=== PATIENT | male | born 1955 | race Caucasian/White ===

== ENCOUNTER 2017-06-06 09:19 | Observation (INO) | payer OTHER ==
[2017-06-06 09:51] LABS: #Eosinphils 0.3 thou/uL (0.0-0.7); #Lymphocytes 1.4 thou/uL (1.20-3.40); #Monocytes 0.5 thou/uL (0.11-0.59); #Neutrophils 7.8 thou/uL (1.40-6.50); %Basophils 0.1 % (0.0-1.0); %Eosinophils 2.9 % (0.0-10.0); %Lymphocytes 14.1 % (21.0-51.0); Hematocrit 47.3 % (42.0-52.0); Mean Platelet Volume 7.5 fL (7.4-10.4)
[2017-06-06 09:59] LABS: PTT 28.5 SEC (22.9-36.1); Prothrombin Time 13.1 SEC (12.0-14.7)
[2017-06-06 10:21] LABS: ALT (SGPT) 29 U/L (8-55); AST (SGOT) 22 U/L (5-34); Alkaline Phosphatase 60 U/L (40-150); Anion Gap 11 mmol/L (10-20); BUN (Urea Nitrogen) 20 mg/dL (8.4-25.7); Bilirubin, Total 1.3 mg/dL (0.2-1.2); CK (CPK) 224 U/L (30-200); Calc. Creatinine Clearance 0 mL/min (70-130); Calcium 9.6 mg/dL (7.8-10.44); Carbon Dioxide 25 mmol/L (22-29); Chloride 106 mmol/L (98-107); Estimated GFR-MDRD 84; Globulin 3.1 g/dL (2.4-3.5); Lipase 17 U/L (8-78); Protein, Total 7.4 g/dL (6.0-8.3)
[2017-06-06 10:23] LABS: Troponin I Less than 0.010 ng/mL (< 0.028)
--- NOTE | 2017-06-06 10:36 | RAD ---
AP VIEW CHEST: HISTORY: Dyspnea. FINDINGS: AP view chest is obtained. The lungs are well aerated. No evidence of active intrathoracic disease is seen. No evidence of effusions, pneumonia, or pneumothorax seen. IMPRESSION: Unremarkable AP view chest. POS: [facility]
[2017-06-06] MEDS ORDERED: Lorazepam 2 MG/ML VIAL ONE (10:38)
[2017-06-06] MEDS ORDERED: Meclizine HCl 25 MG TAB ONE (10:39)
[2017-06-06] MEDS ORDERED: Dexamethasone 4 mg/ml Vial ONE (10:39)
[2017-06-06] MEDS ORDERED: Ondansetron HCl/PF 4 MG/2 ML Vial ONE (10:39)
--- NOTE | 2017-06-06 11:08 | CT ---
CT OF THE BRAIN WITHOUT CONTRAST: INDICATION: History of dizziness and vertigo. COMPARISON: None. FINDINGS: No acute infarct, hemorrhage, or hydrocephalus is present. Septum pellucidum and third ventricle are midline. The skull and extracranial soft tissues are unremarkable appearing. IMPRESSION: No acute intracranial abnormality. POS: [facility]
[2017-06-06 11:52] LABS: Bilirubin Negative (Negative); Blood, Urine Negative (Negative); Glucose, Urine (Dipstick) Negative (Negative); Ketone, Urine Negative (Negative); Nitrite Negative (Negative); Protein, Urine (Dipstick) Negative (Neg-Trace); Urobilinogen 0.2 mg/dL (0.2-1.0)
[2017-06-06] MEDS ORDERED: Mag-Al 1200 mg/1200 mg/30 ML UDCUP PO PRN (12:56)
[2017-06-06] MEDS ORDERED: Loperamide HCl 2 MG CAP PO PRN (12:56)
[2017-06-06] MEDS ORDERED: Zolpidem Tartrate 5 MG TAB PO PRN (12:56)
[2017-06-06] MEDS ORDERED: Sodium Chloride 0.65% Nasal 44 ML BOT EA NARE PRN (12:56)
[2017-06-06] MEDS ORDERED: Ondansetron ODT 4 MG TAB PO PRN (12:56)
[2017-06-06] MEDS ORDERED: Chloraseptic Spray 180 ml Bottle PO PRN (12:56)
[2017-06-06] MEDS ORDERED: Eucerin (Mineral Oil/Petrolatum,White) 30 gm Jar TOP PRN (12:56)
[2017-06-06] MEDS ORDERED: Artificial Tears 18 DROP/0.9 ML EA EYE PRN (12:56)
[2017-06-06] MEDS ORDERED: Loratadine 10 MG TAB PO PRN (12:56)
[2017-06-06] MEDS ORDERED: HYDROcodone/Acetaminophen 5/325 mg Tablet PO PRN (12:56)
[2017-06-06] MEDS ORDERED: Senokot 8.6 MG TAB PO PRN (12:56)
[2017-06-06] MEDS ORDERED: Ondansetron HCl/PF 4 MG/2 ML Vial IVP PRN (12:56)
[2017-06-06] MEDS ORDERED: Diabetic Tussin 200 MG/10 ML UDCUP PO PRN (12:56)
[2017-06-06] MEDS ORDERED: Milk Of Magnesia 30 ML UDCUP PO PRN (12:56)
[2017-06-06] MEDS ORDERED: hydrALAZINE 20 MG/ML VIAL SLOW IVP PRN (12:56)
[2017-06-06] MEDS ORDERED: Acetaminophen 325 MG TAB PO PRN (12:56)
[2017-06-06] MEDS ORDERED: ISOVUE-370 76%-LOCM 1 ML ONE (13:57)
--- NOTE | 2017-06-06 14:41 | HP ---
PRIMARY CARE PHYSICIAN: [facility] call admission. REASON FOR ADMISSION: Acute vertigo, rule out cerebrovascular accident. HISTORY OF PRESENT ILLNESS: This is a 61-year-old male with a new diagnosis of hypertension, but not on any blood pressure medication as well as history of dyslipidemia and not on any statin therapy as well as morbid obesity, who was brought to emergency room for acute vertigo. The patient reports th at he woke up this morning around 5:00 a.m. and he was feeling that his ceiling fan and everything wa s spinning and then he sat down at the edge of the bed, but he was continuing to feel spinning sensat ion and he tried to go to bathroom, and when he was in the bathroom at that time he was feeling nause a, but his spinning sensation was persistent. Then, he came back again to the bed and he was not com fortable, because he was having continuous spinning sensation. Whenever he was closing his eyes, the n he was feeling better, but whenever he was opening his eyes, he was starting feeling dizziness and vertigo. Even if he changes position, there was also precipitating vertigo. When he was in bed, at that time he was feeling hot flashes over his both legs and upper extremity. Subsequently, he tried to go to shower, but he was not able to do that. He was not having any tinnitus. He was not having any upper respiratory infection or any upper respiratory symptoms. He started feeling throbbing head ache on the posterior aspect of head. Then he started watching TV, but he was feeling spinning sensa tion and his TV was also spinning around that made symptoms worse. Patient also started experiencing left-sided upper and lower extremity as well as left-sided facial numbness as a dentist gives local anesthetic. The patient was worried about that something is wrong. He waited for a while to get bet ter by itself, but it was not getting better and that is why he woke up his , and subsequently, h is drove him to ER. When they were on the way to [place], patient felt vomiting, and he was having similar vertigo and nausea as well as tingling and numbness sensation on the left side and he was hav ing headache. He did not have any fall. He did not have any chest pain, but he was feeling shortnes s of breath. Finally, drove him to ER and he was still having ongoing symptoms. In the emergency room, the patient had CT brain, which was normal; and chest x-ray was normal. He wa s given aspirin 324 mg, Decadron 10 mg, Ativan 1 mg, Zofran 4 mg, and Antivert 25 mg. After that his symptoms were somewhat improved, but he was still feeling the spinning sensation as well as he was s till having mild paraesthesia on the left side, but it started improving when I saw this patient. The patient does have a recent diagnosis of high blood pressure, but he was not started on any medica tion and he does have cholesterol problem, but he is not on any specific therapy. He does not have a ny sedentary lifestyle. He denies any speech problem. He denies any diplopia. He denies any facial asymmetry. He denies any constipation, diarrhea, melena, hematochezia. He denies any similar probl em in the past. He denies any difficulty swallowing. REVIEW OF SYSTEMS: The following complete review of systems was negative, unless otherwise mentioned in the HPI or below: Constitutional: Weight loss or gain, ability to conduct usual activities. Sk in: Rash, itching. Eyes: Double vision, pain. ENT/Mouth: Nose bleeding, neck stiffness, pain, te nderness. Cardiovascular: Palpitations, dyspnea on exertion, orthopnea. Respiratory: Shortness of breath, wheezing, cough, hemoptysis, fever or night sweats. Gastrointestinal: Poor appetite, abdom inal pain, heartburn, nausea, vomiting, constipation, or diarrhea. Genitourinary: Urgency, frequenc y, dysuria, nocturia. Musculoskeletal: Pain, swelling. Neurologic/Psychiatric: Anxiety, depression . Allergy/Immunologic: Skin rash, bleeding tendency. Please see my HPI for pertinent positives and negatives. All other review of systems reviewed and negative except as mentioned in the HPI. ALLERGIES: No known drug allergy. CURRENT HOME MEDICATIONS: The patient is not taking any prescribed or non-prescribed medication. PAST MEDICAL HISTORY: Osteoarthritis, morbid obesity, recent diagnosis of hypertension, dyslipidemia . PAST SURGICAL HISTORY: ACL repair in bilateral knee. PAST PSYCHIATRIC HISTORY: Reviewed and negative. FAMILY HISTORY: No strong family history of premature coronary artery disease, stroke, or cancer. SOCIAL HISTORY: Patient is and lives at home. 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 He denies any tobacco, alcohol, or illicit drug abuse. EMERGENCY ROOM COURSE: Patient is given aspirin 324 mg, Decadron 10 mg, Ativan 1 mg, Zofran 4 mg, an d Antivert 25 mg. PHYSICAL EXAMINATION: VITAL SIGNS: On arrival, blood pressure 146/82, pulse 67, respiratory rate 16, temperature 97.5, sat uration 97% on room air, weight 145.1 kilograms. GENERAL: Patient is currently alert, awake, in no obvious acute distress. HEENT: Normocephalic, atraumatic. Eyes: Pupils round and reactive to light. Extraocular muscles i ntact. ENT: Oropharynx within normal limits. Moist mucous membranes. No oral lesions. No pharyng eal erythema, no exudate. NECK: Supple, no JVD, no thyromegaly, no carotid bruits. LUNGS: Clear to auscultation without any rhonchi or rales. CARDIAC: S1, S2 regular without any murmur. ABDOMEN: Soft, obesity present. Bowel sounds present. Nontender, nondistended. No organomegaly, n o mass, no suprapubic tenderness. BACK EXAMINATION: Unremarkable, no CVA tenderness. EXTREMITIES: Upper extremities, passive movement of all joints are normal. Lower extremities, no ed sonny. Good peripheral pulsation. SKIN: No skin rash. HEMATOLOGICAL SYSTEM: No lymphadenopathy. NEUROLOGIC: The patient is alert, oriented x3. Patient does have difficulty performing cerebellar s ign on the left side. The patient does have left-sided facial and upper and lower extremity numbness . Speech normal. Motor 5/5. Reflexes symmetrical. Plantar bilateral flexor. PSYCHIATRIC: Normal affect. SIGNIFICANT LABORATORY DATA: EKG, based on my review, normal sinus rhythm, left axis deviation, LVH. CT brain, based on my review, no acute intracranial process. Chest x-ray, based on my review, no a cute cardiopulmonary process. CBC: WBC 10.0, hemoglobin 15.9, platelets 218. INR 1.0. BMP: Sodiu m 138, potassium 3.9, chloride 106, carbon dioxide 25, BUN 20, creatinine 0.92, glucose 118, calcium 9.6. LFT: Bilirubin 1.3, AST 22, ALT 29, alkaline phosphatase 60, albumin 4.3, lipase 17, CK of 224 , CK-MB 5.2, troponin I less than 0.010. BNP 19.7. ASSESSMENT AND PLAN: 1. Acute cerebellar stroke, left-sided, suspected. This patient has acute vertigo. He has occipita l throbbing headache and left upper and lower extremity paraesthesia as well as facial paraesthesia o n the left side with a history of hypertension, dyslipidemia, morbid obesity, and his age. I am real ly concerned about left-sided cerebellar cerebrovascular accident. CT brain is not showing any acute process. Currently, symptoms are still there and patient is out of window period for any kind of in tervention. The patient will be given aspirin. We will obtain CT angiography of neck and brain to r ule out any vertebrobasilar insufficiency versus anterior circulation problem. We will obtain MRI br ain and echocardiography. We will check lipid profile as a part of stroke workup. We will do neuro check q.4 hourly. If stroke is positive on MRI, then will consult Neurology and change to inpatient status, but at this point we will start with observation status. We will start a blood pressure medi cation with amlodipine 2.5 mg p.o. daily and Lipitor 10 mg p.o. at bedtime. 2. Hypertension. We are starting amlodipine 5 mg p.o. daily and we will monitor the patient's blood pressure. 3. Dyslipidemia. Check lipid profile and start Lipitor 10 mg p.o. at bedtime. 4. Morbid obesity. Dietary education given, weight loss education given, healthy lifestyle measures discussed with the patient. 5. Osteoarthritis. The patient will be given pain medication as needed basis. 6. Deep vein thrombosis prophylaxis. Lovenox 40 mg subcutaneously daily. 7. Gastrointestinal prophylaxis. Pepcid 20 mg p.o. b.i.d. 8. Code status: The patient is FULL CODE. The patient's is surrogate decision maker. Disposition plan based on clinical course. At this point, we will also treat symptomatically for emilio tigo with meclizine. We will also consult PT/OT for gait assessment. Another differential diagnosis is benign positional vertigo with acute labyrinthitis, but less likely given associated neurological symptoms and absence of upper respiratory viral infection.
--- NOTE | 2017-06-06 15:21 | CT ---
CAROTID CTA: HISTORY: Cerebellar CVA. FINDINGS: Contrast-enhanced CTA of the carotid arteries is obtained. Two-D and 3D reconstructed images perform ed on an independent 3D work station. Aortic arch is unremarkable. The right brachiocephalic artery is patent. The right and left subclav archie arteries are patent. The right and left vertebral arteries are patent without evidence of signif icant stenosis. Vertebrobasilar artery unremarkable. The right brachiocephalic artery is patent. The right and left common and internal carotid arteries are patent without evidence of significant st enosis. Right and left external carotid arteries are also patent. There is some heterogeneity seen in the right and left thyroid lobes with area of calcification in th e left thyroid lobe. Correlate with thyroid sonography. IMPRESSION: 1. No significant evidence of common carotid, internal carotid, external carotid, or vertebral arter y stenosis or occlusive change is seen. 2. Heterogeneous thyroid lobes. Elective evaluation by ENT may be of use. POS: [facility]
--- NOTE | 2017-06-06 15:52 | MRI ---
MRI BRAIN WITHOUT CONTRAST: Date: 06/06/17 HISTORY: Altered mental status, dizziness, vertigo, TIA. FINDINGS: Correlation is made with CT scan from earlier today. No restricted diffusion is seen. No evidence of infarct, hemorrhage, midline shift, or abnormal extra -axial fluid collections are seen. The ventricular size is normal and the basilar cisterns are patent . The visualized paranasal sinuses and mastoid air cells are well aerated. IMPRESSION: No evidence of acute intracranial process. POS: [facility]
[2017-06-06 17:44] VITALS: BMI 34.5
[2017-06-06] MEDS: Famotidine 20 MG TAB PO SCH (20:45)
[2017-06-06] MEDS ORDERED: Atorvastatin Calcium 10 MG TAB PO SCH (21:00)
--- NOTE | 2017-06-07 05:43 | CON ---
DATE OF CONSULTATION: 06/06/2017 REFERRING PROVIDER: Arleen Brandon M.D. REASON FOR CONSULTATION: Acute onset of vertigo. HISTORY OF PRESENT ILLNESS: Mr. Lion is a pleasant 61-year-old male, who has been concerned for evaluation of acute onset of vertigo. He reports that this morning around 5:00 a.m. when he wok e up and opened his eyes, he noticed everything was spinning. He tried to sit up and report his feet down on the floor and noticed that he was not able to maintain his balance. He also continued to blanton ve dizziness and vertigo-type sensation. He went to the bathroom and stood on the washbasin for a fe w minutes with his eyes closed as it did help some, but as soon as he opened his eyes, he again start ed noticing vertigo-type sensation. He also started feeling sweaty and becoming hot. He then went b ack to the bed and at that time, he continued to have the dizziness and vertigo-type sensation. He w as also having issues with depth perception. He also complained of having headache into the back of the head, which was throbbing in quality. He also felt double vision when he was trying to look at o bjects. This prompted him to tell his to bring him to the hospital. His noted that while he was trying to put on his jeans, he could not do it as his depth perception was off. She noted jovanna t his left side was not able to coordinate properly. He also complaint of being very light sensitive , although, she felt that it was more of covering of his eyes to avoid the vertigo-type sensation. Eugenio lucas has no prior history of this type of symptoms in the past. He denies having ringing in the ear, he aring loss or earache. He did not have any dysarthria or dysphagia. There was no numbness, tingling , or weakness in his upper and lower extremities. He reports that this has improved somewhat since b eing admitted to the hospital; however, when he tries to look from one side to the other, he does get extremely dizzy and vertigo as well as nauseous. He also has double vision at that time that tends to go away after a few seconds. PAST MEDICAL HISTORY: Significant for osteoarthritis, morbid obesity, probable history of hypertensi on per , and dyslipidemia. PAST SURGICAL HISTORY: Significant for ACL repair in both knees. SOCIAL HISTORY: He is and lives with his at home. He denies smoking, alcohol use, or i llicit drug use. 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 CURRENT MEDICATIONS: Please review MAR. ALLERGIES: No known drug allergies. REVIEW OF SYSTEMS: As mentioned in the HPI, otherwise negative. PHYSICAL EXAMINATION: VITAL SIGNS: Blood pressure 146/91, pulse of 87, temperature of 98.5, respirations of 20, O2 sats of 97% on room air. GENERAL: Well-developed, well-nourished male, in no apparent distress. RESPIRATORY: Clear to auscultation bilaterally. CARDIOVASCULAR: Regular rate and rhythm. NEUROLOGIC: Mental status: The patient is awake, alert, oriented x3. Speech and language: Fluent speech. Cranial nerves: Pupils are 3 mm and reactive. Visual denney are intact. External muscles are intact. No nystagmus is noted. Face is symmetric. Tongue and uvula are midline. Motor exam sh owed normal tone and bulk with a 5/5 strength in both lower extremities. Sensory: Sensation is inta ct and symmetric. Deep tendon reflexes 2+ reflexes in both lower extremities. Babinski: Plantar re sponses flexion bilaterally. Coordination: There is a mild dysmetria noted on [id number] on the left upper extremity. There is also dysdiadochokinesia noted on the left lower extremity on benigno l-to-garvin test. LABORATORY DATA: Labs are reviewed, which included CBC, coag panel, CMP, CPK, CK-MB, troponin, BNP, TSH, and urinalysis, which are all significant for CPK of 224. Otherwise, unremarkable. IMAGING STUDIES: MRI brain without contrast was reviewed, which showed no acute intracranial abnorma lity. CT angiogram of the neck was reviewed, which showed no significant or evidence of carotid rena jerica or vertebral artery stenosis noted. Heterogeneous thyroid lobes with the area of classification in the left thyroid lobe, otherwise negative. IMPRESSION: 1. Acute vertigo. 2. Dysmetria. Mr. Lion is a pleasant 61-year-old male, who presented with an acute onset of vertigo and po or depth perception. His symptoms are somewhat getting better. I have reviewed his MRI brain, which showed no acute intracranial abnormality. I reviewed his CT angiogram of the neck, which showed no acute intracranial vascular abnormality. At this time, I would recommend starting patient on aspirin 81 mg daily for secondary stroke prevention. I will recommend consulting PT, OT. If the patient is stable overnight and he has improvement in his symptoms, he is okay to be discharged to home on leonie rr morning.
[2017-06-07 07:51] VITALS: TEMP 97.5
[2017-06-07] MEDS: Famotidine 20 MG TAB PO SCH (08:43)
[2017-06-07] MEDS ORDERED: Enoxaparin Sodium 40 MG/0.4 ML SYRINGE SC SCH (09:00)
[2017-06-07] MEDS ORDERED: Amlodipine 5 MG TAB PO SCH (09:00)
[2017-06-07] MEDS ORDERED: Aspirin 325 mg Enteric Coated Tablet PO SCH (09:00)
[2017-06-07] MEDS ORDERED: FLU VACC QS2017-18 36 mo. & older 0.5 ML SYRINGE IM ONE (09:00)
--- NOTE | 2017-06-07 11:00 | DIS ---
DATE OF ADMISSION: 06/06/2017 DATE OF DISCHARGE: 06/07/2017 PRIMARY CARE PHYSICIAN: Rolanda Koch, family nurse practitioner. DISCHARGE DISPOSITION: Home. PRIMARY DISCHARGE DIAGNOSES: 1. Acute dysmetria and vertigo suspected for cerebellar transient ischemic attack. 2. New onset hypertension. 3. New onset dyslipidemia. SECONDARY DISCHARGE DIAGNOSES: Obesity with BMI 34. PRIMARY PROCEDURE/OPERATION: None. RADIOLOGICAL INVESTIGATION: Chest x-ray, normal. CT brain, normal. Echocardiography showed diastol ic dysfunction. MRI brain, normal. CT angiography, normal. SIGNIFICANT LABORATORY DATA: WBC 10.0, hemoglobin 15.9, platelets 218. INR 1.0. Sodium 138, potass ium 3.9, BUN 20, creatinine 0.92, calcium 9.6. LFTs normal. Cardiac enzymes negative. LDL 224, TSH 0.39, lipase 17, homocystine 6.49. Urinalysis normal. DISCHARGE MEDICATIONS: Aspirin 325 mg p.o. daily, amlodipine 5 mg p.o. daily, and Lipitor 40 mg p.o. at bedtime. CONTRAINDICATIONS: None. CODE STATUS: FULL CODE. INPATIENT CONSULTANTS: Dr. Estefania Campoverde was consulted while in hospital. TEST RESULTS PENDING ON DISCHARGE: None. ALLERGIES: No known drug allergies. DISCHARGE PLAN: Post hospital, the patient will follow up with primary care physician in 1 week. HOSPITAL COURSE: A 61-year-old male with above-mentioned medical problem, who was admitted by me yes terday. Please see my HPI for further details. The patient was having acute onset of vertigo, dysme tria, unsteadiness, and he was also experiencing numbness on his left side of his upper extremity and lower extremity. He was not having any vestibular symptoms and he was not having benign positional vertigo symptoms. Initially CT brain was normal. Chest x-ray was normal. He was treated with Antiv ert, Decadron, and lorazepam in the emergency room without any significant improvement. We suspected a cerebellar CVA. We kept this patient in the hospital in stroke floor. We did neuro check. We co nsulted Neurology. We did an MRI brain; surprisingly MRI was normal. CT angiography was normal. His lipid profile is n ot at target and that is why we provided dietary education. He has new onset hypertension and high c holesterol and that is why we started medication. Necessary patient education about heart healthy li mishale discussed with the patient. He is advised to follow with primary care physician in 1 week fo r adjustment of blood pressure medication. Today, the patient is seen and examined at bedside. Plan of care discussed with the patient and fami ly member. PHYSICAL EXAMINATION: VITAL SIGNS: Temperature 97.5, pulse 65, blood pressure 151/86, respiratory rate 18, saturation 95%, weight 317 pounds. GENERAL: The patient is currently alert, awake, in no acute distress. HEAD: Normocephalic, atraumatic. LUNGS: Clear to auscultation without any rhonchi. CARDIAC: S1, S2 regular without any murmur. ABDOMEN: Soft and benign. EXTREMITIES: No edema. NEUROLOGIC: Nonfocal examination. Review of systems reviewed and negative. All new medication prescription sent to his pharmacy. Rupa ent is medically stable for discharge today.
[2017-06-07 15:33] VITALS: BP 145/106
== END 2017-06-07 11:08 | disposition home or self-care (01) ==
LOC: ERS 09:19 → ERHOLD 11:46 → 2SE 16:26
PROVIDERS: ADMIT Internal Medicine; ATTEND Internal Medicine
DX: R27.8 Other lack of coordination (principal); I10 Essential (primary) hypertension; E78.5 Hyperlipidemia, unspecified; R20.0 Anesthesia of skin; M19.90 Unspecified osteoarthritis, unspecified site; E66.01 Morbid (severe) obesity due to excess calories; Z68.34 Body mass index [BMI] 34.0-34.9, adult; Z79.82 Long term (current) use of aspirin; Z79.899 Other long term (current) drug therapy; Z98.890 Other specified postprocedural states
CPT/HCPCS: 36415; 70450; 70498; 70551; 71010; 80053; 80061; 81003; 82553; 83090; 83690; 83880; 84443; 84484; 85025; 85610; 85730; 90471; 90682; 93005; 93306; 96372; 96374; 96375; G0008; G0378; G8978-GP-CH; G8979-GP-CH; G8980-GP-CH; G8987-GO-CH; G8988-GO-CH; G8989-GO-CH; J1100; J1650; J2060; J2405; Q2036

== ENCOUNTER 2018-04-26 14:59 | Outpatient (CLI) | payer OTHER ==
--- NOTE | 2018-04-26 17:13 | RAD ---
PA AND LATERAL OF THE CHEST 04/26/18 INDICATION: Concern for TB. FINDINGS: No suspicious nodules or hilar lymphadenopathy is evident. No pleural effusion is demonstrated. Cardi omediastinal silhouette is within normal limits. No acute osseous abnormality is evident. IMPRESSION: No acute abnormality. POS: [facility]
== END 2018-04-26 15:00 | disposition home or self-care (01) ==
LOC: RAD-FRANK 14:59
PROVIDERS: ATTEND Nurse Practitioner Family
DX: Z03.89 Encounter for observation for other suspected diseases and conditions ruled out (principal)
CPT/HCPCS: 71046; 86706; 86780; 86803; 87389

== ENCOUNTER 2018-04-30 12:51 | Inpatient (IN) | payer OTHER ==
[2018-04-30] MEDS ORDERED: Fentanyl 100 MCG/2 ML VIAL ONE ×8 (12:58→20:28)
[2018-04-30] MEDS ORDERED: Adacel (T-DAP) 0.5 ML VIAL ONE (13:00)
[2018-04-30 13:21] LABS: #Eosinphils 0.2 thou/uL (0.0-0.7); #Lymphocytes 2.8 thou/uL (1.20-3.40); #Monocytes 0.9 thou/uL (0.11-0.59); #Neutrophils 6.9 thou/uL (1.40-6.50); %Basophils 0.1 % (0.0-1.0); %Eosinophils 1.9 % (0.0-10.0); %Lymphocytes 26.1 % (21.0-51.0); %Monocytes 8.3 % (0.0-10.0); %Neutrophils 63.7 % (42.0-75.0); Hemoglobin 15.2 g/dL (14.0-18.0); Mean Corpuscular HGB CONC 33.8 g/dL (32.0-36.0); Mean Corpuscular Hemoglobin 30.7 pg (27.0-31.0); Mean Corpuscular Volume 90.8 fL (78.0-98.0); Mean Platelet Volume 7.7 fL (7.4-10.4); Platelet Count 252 thou/uL (130-400); RBC Distribution Width 12.5 % (11.5-14.5); Red Blood Cell (RBC) Count 4.95 mill/uL (4.70-6.10); White Blood Cell (WBC) Count 10.8 thou/uL (4.8-10.8)
[2018-04-30 13:42] LABS: ALT (SGPT) 27 U/L (8-55); AST (SGOT) 22 U/L (5-34); Albumin 4.1 g/dL (3.4-4.8); Alkaline Phosphatase 57 U/L (40-150); Anion Gap 16 mmol/L (10-20); BUN (Urea Nitrogen) 27 mg/dL (8.4-25.7); Bilirubin, Total 1.4 mg/dL (0.2-1.2); CK (CPK) 296 U/L (30-200); Calc. Creatinine Clearance 0 mL/min (70-130); Calcium 9.3 mg/dL (7.8-10.44); Carbon Dioxide 20 mmol/L (23-31); Chloride 105 mmol/L (98-107); Estimated GFR-MDRD 70; Globulin 2.8 g/dL (2.4-3.5); Glucose 122 mg/dL (80-115); Potassium 3.7 mmol/L (3.5-5.1); Protein, Total 6.9 g/dL (5.8-8.1); Sodium 137 mmol/L (136-145)
[2018-04-30 13:44] LABS: Troponin I Less than 0.010 ng/mL (< 0.028)
--- NOTE | 2018-04-30 13:59 | RAD ---
LEFT FOREARM 2 VIEWS: Date: 04/30/18 PROVIDED CLINICAL HISTORY: Left arm pain status post injury. FINDINGS: There is a comminuted and prominently displaced interarticular fracture of the left distal radius. Th ere is fracture fragment overlapping an apex dorsal angulation at the fracture site. The integrity of the distal radial ulnar joint is not well assessed on the basis of this study. Clinical correlation is recommended. There is ulnar styloid fracture. IMPRESSION: Fractures of the distal radius and ulna as above. POS: [facility]
--- NOTE | 2018-04-30 14:01 | RAD ---
PORTABLE CHEST: Date: 04/30/18 PROVIDED CLINICAL HISTORY: Trauma. FINDINGS: Comparison with 06/06/17. Cardiac and mediastinal silhouette is unchanged in appearance. No focal consolidation evident. The [place] nature of the study is not sensitive for detection of pleural fluid or pneumothorax, without allie ss evidence for such. The bony thorax appears grossly intact. IMPRESSION: No evidence for an acute cardiopulmonary process with limitations as above. POS: [facility]
--- NOTE | 2018-04-30 14:02 | RAD ---
LEFT HUMERUS 2 VIEWS: Date: 04/20/18 PROVIDED CLINICAL HISTORY: Left arm pain status post injury. FINDINGS: There is no evidence for fracture or other acute osseous abnormality. If there is persistent clinical concern, conservative management and follow-up imaging are advised. IMPRESSION: As above. POS: [facility]
--- NOTE | 2018-04-30 14:10 | CT ---
CT HEAD WITHOUT CONTRAST: Date: 04/30/18 Multiple axial tomograms obtained through head without IV enhancement. INDICATION: Level II trauma. Injury to head. FINDINGS: Ventricles have normal size and position. There is no evidence of intracranial hemorrhage No mass or edema. Sinuses and mastoids are well aerated. IMPRESSION: No acute abnormality identified. POS: [facility]
[2018-04-30] MEDS ORDERED: Morphine 10 MG/ML VIAL ONE (14:12)
--- NOTE | 2018-04-30 14:12 | CT ---
CT CERVICAL SPINE: Date: 04/30/18 Multiple axial tomograms obtained through the cervical spine with multiplanar reconstruction. INDICATION: Level II trauma. FINDINGS: There are moderate degenerative changes of the cervical spine with loss of disc space and anterior os teophytes. Straightening of the lordotic curvature is noted. IMPRESSION: There are degenerative changes of the cervical spine. No evidence of acute fracture. Findings relayed to Dr. Lira. CODE CR. POS: [facility]
[2018-04-30] MEDS ORDERED: Ondansetron PF 4 MG/2 ML Vial ONE (15:06)
[2018-04-30] MEDS ORDERED: Ketorolac Tromethamine 30 MG/ML VIAL ONE (15:06)
[2018-04-30] MEDS ORDERED: Glycopyrrolate 0.2 MG/ML 5 ML SYRINGE ONE (15:06)
[2018-04-30] MEDS ORDERED: ePHEDrine/0.9% NaCl/PF SYRINGE 50 mg/10 ml ONE (15:06)
[2018-04-30] MEDS ORDERED: Morphine 4 MG/ML VIAL ONE (15:44)
[2018-04-30] MEDS ORDERED: Bupivacaine HCl 0.5%/Epinephrine 1:200,000/PF 30 ml Vial ONE (17:18)
[2018-04-30] MEDS ORDERED: Fentanyl 100 MCG/2 ML VIAL SLOW IVP PRN (17:26)
[2018-04-30] MEDS ORDERED: HYDROcodone/Acetaminophen 10/325 mg Tablet PO PRN ×2 (17:26)
[2018-04-30] MEDS ORDERED: Aspirin 81 mg Enteric Coated Tablet PO SCH (17:30)
[2018-04-30] MEDS ORDERED: CEFAZOLIN/Water 2 GM/20 ML SYRINGE ONE (17:38)
[2018-04-30] MEDS ORDERED: Midazolam HCl 2 mg/2 ml Vial ONE (17:51)
[2018-04-30] MEDS ORDERED: Promethazine HCl 25 MG/ML VIAL SLOW IVP PRN (19:37)
[2018-04-30] MEDS ORDERED: Ondansetron HCl/PF 4 MG/2 ML Vial IVP PRN (19:37)
[2018-04-30] MEDS ORDERED: Promethazine HCl 25 MG/ML VIAL IM PRN (19:37)
[2018-04-30] MEDS ORDERED: Promethazine HCl 25 MG/ML VIAL ONE (19:48)
[2018-04-30] MEDS ORDERED: TETANUS AND DIPHTHERIA TOX/PF 0.5 ML DISP.SYRIN IM SCH (20:00)
[2018-04-30] MEDS ORDERED: CEFAZOLIN 2 GM/50 ML-DEXTROSE 2 GM in Premix Bag 1 BAG IVPB SCH (20:00)
[2018-04-30] MEDS ORDERED: CEFAZOLIN/Water 2 GM/20 ML SYRINGE SLOW IVP SCH (20:00)
[2018-04-30] MEDS ORDERED: Communication Order-Pharmacy FS SCH (20:00)
--- NOTE | 2018-04-30 20:19 | RAD ---
LEFT FOREARM TWO VIEWS INTRAOPERATIVE FLUOROSCOPY: History: Fracture. FINDINGS: Intraoperative fluoroscopy was provided for internal fixation as performed by Dr. Washington. Spot fluoro scopic images showed volar compression plate and multiple screws to transfix the distal radius in jason tomic position. Fluoro time 46 seconds. POS: [facility]
[2018-04-30] MEDS ORDERED: Ondansetron ODT 8 MG TAB ONE (20:43)
[2018-04-30] MEDS ORDERED: Metoclopramide HCl 10 MG/2 ML VIAL ONE (20:51)
[2018-04-30] MEDS: Ketorolac Tromethamine 30 MG/ML VIAL IVP SCH (23:05)
[2018-04-30] MEDS: CEFAZOLIN 2 GM/50 ML BAG IVPB SCH (23:05)
[2018-04-30] MEDS: HYDROcodone/Acetaminophen 10/325 mg Tablet PO PRN (23:06)
--- NOTE | 2018-05-01 00:37 | OP ---
PREOPERATIVE DIAGNOSES: Displaced intra-articular distal radius fracture with radial shaft fracture and dislocated distal radioulnar joint. POSTOPERATIVE DIAGNOSES: Displaced intra-articular distal radius fracture with radial shaft fracture and dislocated distal radioulnar joint. PROCEDURE: Open reduction and internal fixation of distal radius and radial shaft fractures and dist al radioulnar joint. SURGEON: Jamie Washington M.D. ANESTHESIA: General. BLOOD LOSS: Minimal. SPECIMEN: None. DRAINS: None. COMPLICATIONS: None. PROCEDURE IN DETAIL: The patient was taken to the operating where general anesthesia was induced. L eft arm was prepped and draped in the usual sterile fashion. After exsanguination, tourniquet was in flated to 300 mmHg. I made extensile flexure carpi radialis incision. The fracture was exposed. I lagged the shaft fracture together first and fixed these with 2.7 mm bone screws with good compressio n. I then reduced the distal radial fragment onto the leg fragment and fixed this with a [employer] iable angle plate use a long plate so it could get good purchase in the proximal shaft. X-rays were obtained which showed appropriate reduction and appropriate length of screws distal, radial, and ulna r joint was reduced and seemed to be reduced with the arm in neutral position. Tourniquet was releas ed. Irrigation performed. Hemostasis obtained. Subcutaneous tissue closed with 2-0 Vicryl, the ski n was closed with geoffrey. The patient was placed in a long arm splint with the arm in neutral posit ion with a distal, radial, ulnar joint reduced. There were no complications.
[2018-05-01 04:34] VITALS: BMI 35.0
[2018-05-01] MEDS: CEFAZOLIN 2 GM/50 ML BAG IVPB SCH ×2 (05:54→12:39)
[2018-05-01] MEDS: Ketorolac Tromethamine 30 MG/ML VIAL IVP SCH ×2 (05:55→12:09)
--- NOTE | 2018-05-01 07:14 | CON ---
DATE OF CONSULTATION: 04/30/2018 PRINCIPAL DIAGNOSIS: Comminuted intra-articular distal radius fracture extending into the radial sha ft with a radial shaft fracture. HISTORY OF PRESENT ILLNESS: He was moving a heavy A frame which weighed about 2500 pounds. He was c arrying it on a tractor. The tractor hit a hole and the A frame fell on him glancing blow off of his left arm and on his left wrist. He suffered an intra-articular fracture as described above. Chary mann, complains of fairly severe pain in the distal radius, pain in forearm, pain with swelling around the humerus. He has some tingling in his fingers, but seems to be able to use his fingers well enou gh. On examination, there is bruising on his arm, forearm and wrist, abrasions over his upper arm. No instability of the upper arm or elbow. Distal radius is closed fracture surprisingly. There is m arked shortening and radial deformation to the distal radius area. Cap refill is intact. Sensation is intact. Radiograph show comminuted intra-articular fracture of distal radius. Plan is for ORIF o f distal radius. He understands the possibility of external fixation, risk of infection, stiffness, nerve or blood vessel damage, blood clots, transfusion, and would like to proceed with surgery.
[2018-05-01] MEDS: HYDROcodone/Acetaminophen 10/325 mg Tablet PO PRN ×2 (08:11→12:13)
[2018-05-01] MEDS ORDERED: Amlodipine 5 MG TAB PO SCH (09:00)
[2018-05-01] MEDS ORDERED: Aspirin 325 mg Enteric Coated Tablet PO SCH (09:00)
[2018-05-01] MEDS ORDERED: Atorvastatin Calcium 40 MG TAB PO SCH (09:00)
[2018-05-01 11:42] VITALS: BP 119/78; TEMP 98.5
--- NOTE | 2018-05-01 17:53 | HP ---
DATE OF ADMISSION: 04/30/2015. TIME SEEN: 05/01/2018 ORTHOPEDIC SURGEON: Dr. Washington. TRAUMA ATTENDING: Dr. Topher Darling. REASON FOR ADMISSION: Right distal radius comminuted fracture. HISTORY OF PRESENT ILLNESS: Mr. Lion is a 62-year-old male with a past medical history of hypertension, hyperlipidemia, multiple orthopedic surgeries, and TIAs who presented as code 2 trauma to the Emergency Department yesterday. The patient was riding a tractor carrying a mainframe, fell onto him, crushing his left arm, actually trapped him under the tractor for 15 minutes. He self- extricated. No loss of consciousness, only has pain to the left arm. He states that he reduced his arm as best as he could on his own and walked into the house where his drove him to the emergency department. CT brain and C- spine were both negative. Chest x-ray was negative. The only injury noted is a complex fracture of the left forearm intra-articular at the distal radius and it does involve the ulna. Dr. Washington from Orthopedic Surgery has been consulted and placed the patient in observation overnight after taking him to the operative theater for ORIF of the same injury as above. The patient was seen postoperatively on the surgery león today, states that his pain is controlled. He is in a splint. He has good sensation. He is tolerating a diet and wanting to be discharged. Family is available. The patient has ambulated. He is passing gas and urinating. REVIEW OF SYSTEMS: Twelve point review of systems pertinent positive and negative per HPI, otherwise is regarded as negative. PAST MEDICAL HISTORY: Significant for: 1. Hypertension. 2. Hyperlipidemia. 3. TIA. PAST SURGICAL HISTORY: Bilateral knee surgeries, a finger surgery, wisdom teeth removal. HOME MEDICATIONS: Amlodipine 5 mg daily, losartan/hydrochlorothiazide 100/25 one tab daily, atorvastatin 40 mg daily, aspirin 325 mg daily. ALLERGIES: He is not allergic to any medicines. FAMILY HISTORY: He only reports of "they're all crazy," but no significant past family history. SOCIAL HISTORY: The patient is a former smoker, former chewable tobacco user and former drinker. He has not done any of this in greater than 20 years, formerly used marijuana. He lives in [facility] on property with his . PHYSICAL EXAMINATION: VITAL SIGNS: Temperature is 98.5, blood pressure 119/78, heart rate is 86. He is satting 92% on room air, breathing 16 times per minute. GENERAL: A 62-year-old male sitting up in bed in no acute distress. HEENT: Normocephalic, atraumatic. Trachea is midline. NECK: No JVD is appreciated. RESPIRATORY: Equal rise and fall better, breath sounds are clear to auscultation upper and lower bilaterally. CARDIOVASCULAR: Regular rate and rhythm. No murmurs are appreciated. ABDOMEN: Large, but soft, and nontender. No grimace no masses, no rigidity, no CVA tenderness. Pelvis is stable. MUSCULOSKELETAL: Moves extremities well. Left upper extremity is in a splint and wrapped. Dressing appears to be dry. He has got sensation distally and immediate cap refill. He has a strong radial pulses and pedal pulses noted. Moves all other long bones. SKIN: [place], warm and dry. PSYCHIATRIC: Normal mood and affect. NEUROLOGIC: Alert and oriented to person, place, time, and event and there was no gross deficits are reported. LABORATORY DATA: White blood cell count 10.8, platelets are 252, hemoglobin and hematocrit 15.2 and 45.0 respectively. Chemistry on arrival, sodium was 137 , potassium was 3.7, chloride is 105, CO2 is 20, creatinine is 1.07, glucose is 122, total bilirubin is 1.4, AST, ALT 22 and 27 respectively. Alkaline phosphatase is 57. CK is 297. IMAGING: A humerus x-ray is negative for fracture. Chest x-ray is negative. Brain CT is negative. C-spine CT is negative other than degenerative changes. Forearm x-ray demonstrates a left intra-articular distal radius and ulnar fractures. ASSESSMENT AND PLAN: 1. Distal radius and ulnar fractures of the left. 2. Acute traumatic pain. 3. History of hypertension, hyperlipidemia, and TIAs. PLAN: 1. The patient has already undergone ORIF with Orthopedics and is managing well. 2. Pain control as needed. 3. Continue home medications. 4. Prophylaxis with his home daily aspirin. He is tolerating a diet and ambulating. Therefore, no stress ulcer prophylaxis needed, access, or peripheral IVs. DISPOSITION: Likely discharge home today. The patient is a FULL CODE. This patient was seen with Dr. Darling and this has been discussed with Orthopedic Surgery. They are online with discharging the patient. I have updated the patient and the patient's family at the bedside and answered all questions. TAMMY
--- NOTE | 2018-05-02 13:00 | DIS ---
DATE OF ADMISSION: 04/30/2018 DATE OF DISCHARGE: 05/01/2018 ADMITTING PHYSICIAN: Dr. Topher Darling. ORTHOPEDIC SURGEON: Dr. Washington. ADMITTING DIAGNOSIS: Right distal radius comminuted fracture. DISCHARGE DIAGNOSIS: Right distal radius comminuted fracture. OPERATIVE PROCEDURE: Open reduction and internal fixation of the right distal radius. HOSPITAL COURSE: Mr. Lion is a 62-year-old male who presented to the emergency department as a code 2 trauma on date of admission after his tractor fell on him, crushing his right arm. The patient was found to have a comminuted right distal radius and ulna fracture on hospital day #1, he was taken to the operative suite and had ORIF of the same. The patient tolerated the procedure well and was trans ferred to the surgery león, he was taken off the parenteral pain control, tolerated well with oral. He was tolerating a diet, ambulatory and having minimal pain. DISCHARGE MEDICATIONS: 1. [place]. 2. Aspirin. 3. Amlodipine. 4. Losartan/hydrochlorothiazide. 5. Atorvastatin. 6. Ibuprofen 800 mg daily. OBJECTIVE: VITAL SIGNS: At the time of discharge, blood pressure is 119/78, temperature is 98.5, heart rate is 86, breathing 16 times a minute, and satting 92%. GENERAL: This is a 62-year-old male, sitting up, in no acute distress. HEENT: Normocephalic. RESPIRATORY: No distress. CARDIOVASCULAR: Regular rate and rhythm. EXTREMITIES: Has a splint to the right upper extremity. Does have good sensation. NEUROLOGIC: Alert and oriented to person, place, time, and event. PSYCHIATRIC: Normal mood and affect. SKIN: [place], warm, and dry. DISPOSITION: The patient will be discharged home. DISCHARGE INSTRUCTION: He will follow up with Dr. Washington in the Orthopedic Clinic. The patient was seen with Dr. Topher Darling. Greater than 30 minutes was taken in discharge planning of this patient.
== END 2018-05-01 14:00 | disposition home or self-care (01) | DRG 908 ==
LOC: ERS 12:51 → SJJU 17:01 → SDC 18:04 → SJJU 19:54
PROVIDERS: ADMIT Orthopaedic Surgery; ATTEND Orthopaedic Surgery
PROC: 0PSJ04Z Reposition Left Radius with Internal Fixation Device, Open Approach (ICD-10-PCS; principal; 2018-04-30)
DX: S67.32XA Crushing injury of left wrist, initial encounter (principal); S52.602A Unspecified fracture of lower end of left ulna, initial encounter for closed fracture; S52.572A Other intraarticular fracture of lower end of left radius, initial encounter for closed fracture; S52.302A Unspecified fracture of shaft of left radius, initial encounter for closed fracture; I10 Essential (primary) hypertension; E78.5 Hyperlipidemia, unspecified; W30.89XA Contact with other specified agricultural machinery, initial encounter; Y92.79 Other farm location as the place of occurrence of the external cause; Z79.82 Long term (current) use of aspirin; Z87.891 Personal history of nicotine dependence
CPT/HCPCS: 70450; 71045; 72125; 76001; 80053; 82550; 83605; 84484; 85025; 90471; 90715; 93005; 96374; 96375; 96376; C1713; G8987-GO-CI; G8988-GO-CI; G8989-GO-CI; J0670; J1885; J2250; J2270; J2405; J2550; J2765; J3010

== ENCOUNTER 2018-07-19 09:16 | Outpatient (CLI) | payer OTHER ==
--- NOTE | 2018-07-19 10:06 | RAD ---
PA AND LATERAL CHEST: HISTORY: Cough. COMPARISON: 04/26/2018 exam. FINDINGS: Heart size and mediastinum are within normal limits. The lungs are clear of infiltrates. No signifi cant bony findings. IMPRESSION: No active intrathoracic disease. POS: [facility]
== END 2018-07-19 09:17 | disposition home or self-care (01) ==
LOC: RAD-FRANK 09:16
PROVIDERS: ATTEND Nurse Practitioner Family
DX: R05 Cough (principal)
CPT/HCPCS: 71046

== ENCOUNTER 2019-02-16 13:58 | Inpatient (IN) | payer OTHER ==
[2019-02-16] MEDS ORDERED: Morphine 4 MG/ML VIAL ONE ×3 (14:56→17:10)
--- NOTE | 2019-02-16 15:12 | RAD ---
EXAM: CHEST ONE VIEW HISTORY: Hip fracture. COMPARISON: 07/19/2018 FINDINGS: The cardiac silhouette and pulmonary vasculature is within normal limits. The lungs are clear. The os seous structures are intact. Chest is stable compared to prior study. IMPRESSION: No acute cardiopulmonary process.
--- NOTE | 2019-02-16 15:14 | RAD ---
Exam: XR Hip Lt 2-3 View HISTORY: Injury to left hip after a fall. COMPARISON: None FINDINGS: There is a comminuted intertrochanteric left hip fracture with displacement and separation of fractur e fragments. There is separation of fracture fragments by 1.6 cm, with significant displacement of the lesser trochanter medially with respect to the proximal femur. There is no evidence of a dislocat ion. IMPRESSION: Comminuted left intertrochanteric hip fracture with prominent separation and displacement of fracture fragments.
[2019-02-16 15:26] LABS: #Eosinphils 0.3 thou/uL (0.0-0.7); #Lymphocytes 1.1 thou/uL (1.20-3.40); #Monocytes 0.8 thou/uL (0.11-0.59); #Neutrophils 12.2 thou/uL (1.40-6.50); %Basophils 0.2 % (0.0-1.0); %Lymphocytes 7.5 % (21.0-51.0); %Monocytes 5.4 % (0.0-10.0); %Neutrophils 84.9 % (42.0-75.0); Hemoglobin 14.7 g/dL (14.0-18.0); Mean Corpuscular HGB CONC 34.5 g/dL (32.0-36.0); Mean Corpuscular Hemoglobin 31.2 pg (27.0-31.0); Mean Corpuscular Volume 90.2 fL (78.0-98.0); Mean Platelet Volume 7.6 fL (7.4-10.4); Platelet Count 214 thou/uL (130-400); RBC Distribution Width 12.6 % (11.5-14.5); Red Blood Cell (RBC) Count 4.72 mill/uL (4.70-6.10); White Blood Cell (WBC) Count 14.4 thou/uL (4.8-10.8)
[2019-02-16 15:37] LABS: PTT 26.3 SEC (22.9-36.1); Prothrombin Time 12.9 SEC (12.0-14.7)
[2019-02-16 15:48] LABS: ALT (SGPT) 20 U/L (8-55); AST (SGOT) 19 U/L (5-34); Alkaline Phosphatase 64 U/L (40-150); Anion Gap 15 mmol/L (10-20); BUN (Urea Nitrogen) 30 mg/dL (8.4-25.7); Bilirubin, Total 0.8 mg/dL (0.2-1.2); CK (CPK) 235 U/L (30-200); Calc. Creatinine Clearance 0 mL/min (70-130); Calcium 9.3 mg/dL (7.8-10.44); Carbon Dioxide 21 mmol/L (23-31); Chloride 104 mmol/L (98-107); Estimated GFR-MDRD 73; Globulin 2.7 g/dL (2.4-3.5); Glucose 114 mg/dL (80-115); Potassium 3.6 mmol/L (3.5-5.1); Protein, Total 6.7 g/dL (5.8-8.1); Sodium 136 mmol/L (136-145)
--- NOTE | 2019-02-16 15:58 | RAD ---
LEFT FEMUR: Three views 02/16/19 HISTORY: Injury with pain. There is a comminuted intertrochanteric fracture left hip with slight displacement. Displacement of t he lesser trochanter. Degenerative changes at the knee with postoperative changes at the knee. Knee is suboptimally evaluat ed. There is irregularity of the lateral femoral condyle and I cannot exclude fracture at this locati on. IMPRESSION: 1. Comminuted intertrochanteric fracture of the proximal left femur. 2. Degenerative changes at the knee with postoperative changes. Irregularity of the lateral femo ral condyle in the AP projection. Fracture is not excluded. Recommend dedicated knee views if there i s concern of injury at the left knee. POS: [facility]
[2019-02-16] MEDS ORDERED: Ondansetron ODT 4 MG TAB PO PRN (16:40)
[2019-02-16] MEDS ORDERED: Dextrose 5% in Water 1,000 ML IV PRN (16:40)
[2019-02-16] MEDS ORDERED: Dextrose 50% Abboject 50 ML SYRINGE SLOW IVP PRN (16:40)
[2019-02-16] MEDS ORDERED: Morphine 4 MG/ML VIAL SLOW IVP PRN ×2 (16:40)
[2019-02-16] MEDS ORDERED: Ondansetron PF 4 MG/2 ML Vial IVP PRN (16:40)
[2019-02-16] MEDS ORDERED: hydrALAZINE 20 MG/ML VIAL SLOW IVP PRN (16:40)
[2019-02-16] MEDS ORDERED: CEFAZOLIN 2 GM in Premix Bag 1 BAG IVPB SCH (17:00)
[2019-02-16 17:25] LABS: Phosphorus 2.7 mg/dL (2.3-4.7)
--- NOTE | 2019-02-16 18:31 | HP ---
REQUESTING ER PHYSICIAN: Dr. Krishnamurthy. CONSULTS: Orthopedic Surgery, Dr. Jean. HISTORY OF PRESENT ILLNESS: This is a 63-year-old gentleman, who reports that he tripped and fell today landing on his left side. The patient denies feeling weak, dizzy, or having any chest pain or shortness of breath prior to followup. The patient denies any other injuries and denies hitting his head. The patient reports that he is healthy and only has hypertension. The patient denies any recent illness, cough or cold. The patient was unable to ambulate after he fell and had severe left hip pain. The patient was evaluated in the emergency room, was found to have a left hip fracture. Trauma Services were asked to admit the patient. REVIEW OF SYSTEMS: A 10-point review of systems is negative unless otherwise stated in the above HPI. PAST MEDICAL HISTORY: Hypertension. PAST SURGICAL HISTORY: Left arm repair, left and right knee surgeries, and right hand surgery. ALLERGIES: DENIES ANY DRUG ALLERGIES. MEDICATIONS: 1. Norvasc. 2. Lipitor. 3. Aspirin 81 mg daily. 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 The patient lives with his . OBJECTIVE: VITAL SIGNS: Blood pressure 132/81, pulse 76, respirations 16, SpO2 of 98% on room air, temperature 98.2. GENERAL: The patient is awake and alert, in no distress, lying in ER bed. HEENT: Head is atraumatic, normocephalic. Mucous membranes are moist. Trachea is midline. Normal range of motion of neck. No cervical tenderness. RESPIRATORY: Bilateral breath sounds clear. No wheezing, rales, or rhonchi. Chest expansion normal. CARDIAC: Regular rate, regular rhythm. No murmur. No chest abnormality. ABDOMEN: Soft, nontender, and nondistended, active bowel sounds x4. Tenderness to left hip with palpation. EXTREMITIES: Moves all extremities. Motor strength 5/5, distal pulses 2+ in all extremities. Normal sensation in all extremities. LABORATORY DATA: WBC 14.4, RBC 4.72, hemoglobin 14.7, hematocrit 42.6, and platelets 214. PT 12.9, INR 1.0, APTT 26.3. Sodium 136, potassium 3.8, chloride 104, carbon dioxide 21, BUN 30, creatinine 1.03, estimated GFR 73, glucose 114, lactate 0.9, calcium 9.3, phosphorus 2.7, magnesium 2.0. AST 19, ALT 20. Creatine kinase 235. DIAGNOSTICS: Chest x-ray; no acute cardiopulmonary process. Left hip x-ray; comminuted left intertrochanteric hip fracture with prominent separation and displacement of fracture fragments. Left femur x-ray; irregularity of the lateral femoral condyle in the AP projection. Fracture is not excluded. IMPRESSION: 1. Status post mechanical fall. 2. Left comminuted intertrochanteric hip fracture. 3. History of hypertension. 4. Acute traumatic pain. PLAN: We will place the patient on the surgical ortho floor. We will place the patient on maintenance IV fluids. We will place the patient n.p.o. after midnight in preparation for repair of his left intertrochanteric hip fracture with Dr. Jean tomorrow morning. We will place the patient on a pain regimen. We will order PT and OT to evaluate and treat the patient postop tomorrow. We will also place a rehab consult if in case the patient needs additional rehab as he has bad knees bilateral. The plan was discussed with the patient, who agrees. The plan will be discussed with the attending physician after this dictation. Job ID: [id number]
[2019-02-16] MEDS: Acetaminophen 1,000 MG in Premix Bag 1 BAG IVPB SCH ×2 (18:51→23:59)
[2019-02-16] MEDS: Sodium Chloride 0.9% 1,000 ML IV SCH ×2 (18:52→20:18)
[2019-02-16] MEDS: Ketorolac Tromethamine 30 MG/ML VIAL IVP SCH ×2 (18:52→23:58)
[2019-02-16] MEDS: traMADol HCl 50 MG TAB PO SCH ×2 (18:53→23:58)
[2019-02-16] MEDS: Famotidine/PF 20 mg/2ml Vial SLOW IVP SCH (20:18)
[2019-02-16 20:48] VITALS: BMI 35.1
--- NOTE | 2019-02-16 21:13 | CON ---
DATE OF CONSULTATION: REQUESTING PHYSICIAN: Sha Newman MD BRIEF HISTORY OF PRESENT ILLNESS: Mr. 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 He reports immediate left groin and lateral thigh pain. He was unable to ambulate. Upon arrival at [facility], x-rays were obtained of the hip and knee showed a comminuted intertrochanteric femur fracture. As such, the patient now admitted to the Trauma Service and orthopedic consultation requested. There was no loss of consciousness. No syncopal episode. PAST MEDICAL HISTORY: Hypertension. PAST SURGICAL HISTORY: ORIF, left wrist with Dr. Washington as well as prior knee surgeries. MEDICATIONS: At the time of admission include; 1. Norvasc. 2. Lipitor. 3. Aspirin 81 mg p.o. daily. ALLERGIES: NONE KNOWN. FAMILY HISTORY: Noncontributory for this fracture. SOCIAL HISTORY: Remarkable for a gentleman who was a previous smoker with a [id number] history. The patient reports that he has not used any drugs or alcohol for the last 30 years. REVIEW OF SYSTEMS: No recent fevers, chills, or sweats. Denies chest pain or shortness of breath. No numbness or tingling in the lower extremities. PHYSICAL EXAMINATION: VITAL SIGNS: Temperature 98.2, heart rate of 76, respiratory rate of 16, and blood pressure 132/81. GENERAL: The patient is found to be awake and alert with moderate discomfort from his left hip. HEENT: Atraumatic and normocephalic. HEART: Shows a regular rate and rhythm without murmur. LUNGS: Clear to auscultation bilaterally with good breath sounds. CHEST: Nontender to palpation. ABDOMEN: Round, soft, and nontender with normal bowel sounds. PELVIS: Stable to compression. EXTREMITIES: Bilateral upper extremities are atraumatic. He denies pain at shoulder, elbow, wrist, or hand bilaterally. He denies numbness or tingling. The right lower extremity is atraumatic at the hip, knee, ankle, and foot. He reports no pain with motion and distal neurovascular exam intact. The left lower extremity is held in an externally rotated position at the hip. He has pain in the groin and lateral thigh with any type of logroll or motion of this lower extremity. The knee, ankle, and foot appear atraumatic. He is wiggling his toes normally. There is no evidence for compartment syndrome. IMAGING DATA: X-rays: Two-view x-ray of left femur is remarkable for this comminuted intertrochanteric femur fracture. Two-view x-ray of left hip confirms the above with a basically four-segment fracture with a small lesser trochanter fragment, a large greater trochanter fragment, and then an essentially basicervical femoral neck type extension from the intertrochanteric region. LABORATORY DATA: White count of 14.4, hematocrit of 42.6, and 214,000 platelets. He is found to have an INR of 1.0. ASSESSMENT: A 63-year-old gentleman, status post ground level fall sustaining left intertrochanteric femur fracture with comminution and displacement. PLAN: At this time, the patient is admitted to the Trauma Service for general care. We will proceed with open reduction and internal fixation of this left intertrochanteric femur fracture tomorrow morning. This evening, I discussed with the patient risks and benefits of surgery. Risks include, but are not limited to bleeding, infection, nerve injury, DVT, PE, malunion, nonunion, hardware failure. The patient appears to understand and does wish to proceed. Written consent will be obtained prior to surgery. Job ID: [id number]
[2019-02-16] MEDS ORDERED: Sodium Chloride 0.9% 1,000 ML IV SCH (23:59)
[2019-02-17 04:51] LABS: #Eosinphils 0.2 thou/uL (0.0-0.7); #Lymphocytes 1.2 thou/uL (1.20-3.40); #Monocytes 0.9 thou/uL (0.11-0.59); #Neutrophils 6.5 thou/uL (1.40-6.50); %Basophils 0.4 % (0.0-1.0); %Eosinophils 2.4 % (0.0-10.0); %Lymphocytes 13.8 % (21.0-51.0); %Monocytes 9.7 % (0.0-10.0); %Neutrophils 73.8 % (42.0-75.0); Hemoglobin 12.5 g/dL (14.0-18.0); Mean Corpuscular HGB CONC 34.8 g/dL (32.0-36.0); Mean Corpuscular Hemoglobin 31.6 pg (27.0-31.0); Mean Corpuscular Volume 90.9 fL (78.0-98.0); Mean Platelet Volume 7.8 fL (7.4-10.4); Platelet Count 179 thou/uL (130-400); RBC Distribution Width 12.5 % (11.5-14.5); Red Blood Cell (RBC) Count 3.97 mill/uL (4.70-6.10); White Blood Cell (WBC) Count 8.8 thou/uL (4.8-10.8)
[2019-02-17 05:15] LABS: Anion Gap 11 mmol/L (10-20); BUN (Urea Nitrogen) 30 mg/dL (8.4-25.7); Calc. Creatinine Clearance 137 mL/min (70-130); Calcium 8.6 mg/dL (7.8-10.44); Carbon Dioxide 25 mmol/L (23-31); Chloride 104 mmol/L (98-107); Estimated GFR-MDRD 78; Glucose 114 mg/dL (80-115); Phosphorus 4.8 mg/dL (2.3-4.7); Potassium 3.4 mmol/L (3.5-5.1); Sodium 137 mmol/L (136-145)
[2019-02-17] MEDS: traMADol HCl 50 MG TAB PO SCH ×4 (05:53→23:15)
[2019-02-17] MEDS: Ketorolac Tromethamine 30 MG/ML VIAL IVP SCH ×3 (05:54→18:13)
[2019-02-17] MEDS: Acetaminophen 1,000 MG in Premix Bag 1 BAG IVPB SCH ×2 (05:54→14:05)
[2019-02-17] MEDS ORDERED: Potassium Chloride 40 MEQ in Sodium Chloride 0.9% 250 ML 250 ML IVPB SCH (08:30)
[2019-02-17] MEDS ORDERED: Promethazine HCl 25 MG/ML VIAL IM PRN ×2 (08:47→14:18)
[2019-02-17] MEDS ORDERED: Ondansetron HCl/PF 4 MG/2 ML Vial IVP PRN (08:47)
[2019-02-17] MEDS ORDERED: Promethazine HCl 25 MG/ML VIAL SLOW IVP PRN (08:47)
[2019-02-17] MEDS ORDERED: ceFAZolin Sodium (SDC) 2 GM/100 ML BAG ONE (08:56)
[2019-02-17] MEDS ORDERED: Atorvastatin Calcium 20 MG TAB PO SCH (09:00)
[2019-02-17] MEDS ORDERED: Polyethylene Glycol 3350 17 GM Packet PO SCH (09:00)
[2019-02-17] MEDS ORDERED: Neomycin-Polymyxin 1 ML AMP ONE (09:58)
[2019-02-17] MEDS ORDERED: Fentanyl 100 MCG/2 ML VIAL ONE ×4 (10:27→12:38)
--- NOTE | 2019-02-17 10:58 | PRG ---
DATE OF SERVICE: 02/17/2019 Please see [facility] P for full details. Briefly, the patient is status post fall with left intertrochanteric fracture. Plans for operative repair by Dr. Jean today. Trauma will continue to follow. Job ID: [id number]
--- NOTE | 2019-02-17 10:58 | PRG ---
DATE OF SERVICE: 02/16/2019 SUBJECTIVE: The patient was seen today during evening rounds. He was lying in bed with no signs of acute distress, reported that Ofirm[place] was greatly improving his pain and had dinner without any issues. OBJECTIVE: VITAL SIGNS: The patient is hemodynamically stable and afebrile. PULMONARY: Equal chest rise and fall. No signs of acute respiratory distress. CARDIAC: Regular rate and rhythm. ABDOMEN: Soft, nontender, nondistended. EXTREMITIES: 2+ pulses in all extremities. No significant swelling noted. Left lower extremity slightly shortened and internally rotated. No signs of additional extremity trauma. ASSESSMENT: 1. Status post mechanical fall from standing. 2. Left intertrochanteric femur fracture. 3. History of hypertension. PLAN: The patient will be n.p.o. after midnight and has normal saline at 120 an hour in preparation for the OR tomorrow with Dr. Jean for fixation of his left intertrochanteric femur fracture. Postoperatively, he will work with Physical and Occupational Therapy. Home medications will be restarted as clinically indicated. Job ID: [id number]
[2019-02-17] MEDS ORDERED: Ondansetron PF 4 MG/2 ML Vial ONE ×2 (12:00→16:03)
[2019-02-17] MEDS ORDERED: Metoclopramide HCl 10 MG/2 ML VIAL IVPB SCH (12:01)
[2019-02-17] MEDS ORDERED: Metoclopramide HCl 10 MG/2 ML VIAL ONE ×3 (12:03→16:03)
[2019-02-17] MEDS ORDERED: CEFAZOLIN 2 GM in Premix Bag 1 BAG IVPB SCH (14:00)
[2019-02-17] MEDS: Famotidine/PF 20 mg/2ml Vial SLOW IVP SCH (14:04)
[2019-02-17] MEDS: Sodium Chloride 0.9% 1,000 ML IV SCH ×2 (14:04→19:38)
[2019-02-17] MEDS ORDERED: Tamsulosin HCl 0.4 MG CAP PO SCH (14:30)
--- NOTE | 2019-02-17 15:13 | PRG ---
DATE OF SERVICE: 02/17/2019 SUBJECTIVE: This is a 63-year-old gentleman, who tripped and fell landing on his left side. The patient sustained a left comminuted intertrochanteric hip fracture. The patient has just returned from the operating room for repair of this left intertrochanteric hip fracture by Dr. Jean with open reduction and internal fixation. The patient tolerating ice chips at this time. Reports moderate pain and nausea. The patient continues to have his IV fluids infusing. The patient feels need to urinate, but is due to void at this time. OBJECTIVE: VITAL SIGNS: Blood pressure 108/63, temperature 97.8, pulse 61, respirations 18, SpO2 of 97% on room air. GENERAL: The patient is awake and alert, in moderate distress. Reports nausea from anesthesia. HEENT: Head is atraumatic and normocephalic. RESPIRATORY: Equal chest rise and fall, no respiratory distress, bilateral breath sounds clear. ABDOMEN: Soft, nontender, nondistended. The patient is due to void. PELVIS: Tender, pain to left hip, dressing clean, dry, and intact. EXTREMITIES: Moves all extremities. Distal pulses 2+ in all extremities. Normal sensation. LABORATORY DATA: WBC 8.8, RBC 3.97, hemoglobin 12.5, hematocrit 36.1, and platelets 179. Sodium 137, potassium 3.4, chloride 104, BUN 30, creatinine 0.98, estimated GFR 70, glucose 114, calcium 8.6, phosphorus 4.8, magnesium 2.0. IMPRESSION: 1. Status post mechanical fall. 2. Left comminuted intertrochanteric hip fracture, postop day 0 open reduction and internal fixation. 3. Hypokalemia. 4. Acute traumatic pain. 5. Urinary retention. 6. History of hypertension. PLAN: We will increase the patient's diet as tolerated. We will leave patient's maintenance fluids infusing until the patient does tolerate fluids. We will continue pain regimen and supportive care. We will have PT/OT work with the patient later today. We will replace electrolytes. We will place the patient on Flomax as the patient has need to void, but has urinary retention postop. The plan was discussed with the attending physician, who agrees. The plan was discussed with the patient and family, who agree. Job ID: [id number]
[2019-02-17] MEDS ORDERED: Glycopyrrolate 0.2 MG/ML 5 ML SYRINGE ONE (16:03)
[2019-02-17] MEDS ORDERED: PROPOFOL 200 MG/20 ML VIAL ONE (16:03)
[2019-02-17] MEDS ORDERED: Ketorolac Tromethamine 30 MG/ML VIAL ONE (16:03)
[2019-02-17] MEDS ORDERED: Lidocaine 1% PF 5 ML VIAL ONE (16:03)
[2019-02-17] MEDS ORDERED: Rocuronium Bromide 10 MG/ML (10ML VIAL) ONE (16:03)
[2019-02-17] MEDS ORDERED: Dexamethasone 20 MG/5 ML VIAL ONE (16:03)
[2019-02-17] MEDS: CEFAZOLIN 2 GM in Premix Bag 1 BAG IVPB SCH (18:13)
[2019-02-17] MEDS: Senokot S 8.6-50 MG TAB PO SCH (20:11)
[2019-02-17] MEDS: Ibuprofen 800 MG TAB PO SCH (20:12)
[2019-02-17] MEDS: Atorvastatin Calcium 20 MG TAB PO SCH (20:12)
[2019-02-17] MEDS: Aspirin 81 mg Enteric Coated Tablet PO SCH (20:12)
--- NOTE | 2019-02-17 21:35 | RAD ---
Radiograph left hip 2 views: DATE: 02/17/2019 HISTORY: 63-year-old male with acute, traumatic, displaced left intertrochanteric femoral fracture. COMPARISON: 02/16/2019 FINDINGS: Fluoroscopic spot images obtained with C-arm in the OR. Interval reduction of the intertrochanteric f racture. Interval placement of Jeremiah's type dynamic compression screw. Alignment is nearly anatomical. IMPRESSION: Interval fixation of the acute, traumatic intertrochanteric left proximal femoral fracture by Jeremiah 's type dynamic compression screw.
--- NOTE | 2019-02-17 22:39 | PRG ---
DATE OF SERVICE: 02/17/2019 SUBJECTIVE: Patient was seen briefly this evening during rounds. He is postoperative day zero after fixation of his left intertrochanteric femur fracture. The patient was seen on the floor and he was resting comfortably and asleep with no signs of acute respiratory distress. OBJECTIVE: VITAL SIGNS: The patient is afebrile and hemodynamically stable. Breathing comfortably on room air. PULMONARY: Equal chest rise and fall. No signs of acute respiratory distress. ASSESSMENT: 1. Status post mechanical fall from standing. 2. Left intertrochanteric femur fracture. 3. History of hypertension. PLAN: We will continue the patient on his current pain regimen. Continue to hold his home antihypertensive medications as they are not yet clinically indicated. We will discontinue IV fluids and continue the patient on a regular diet. We will start aspirin tomorrow at 81 mg b.i.d. for DVT prophylaxis. The patient to begin working with Physical and Occupational Therapy tomorrow. He will likely need placement in acute rehab facility. Job ID: [id number]
[2019-02-17] MEDS: Acetaminophen 500 MG TAB PO SCH (23:15)
[2019-02-18] MEDS: CEFAZOLIN 2 GM in Premix Bag 1 BAG IVPB SCH (01:54)
[2019-02-18] MEDS: Ibuprofen 800 MG TAB PO SCH ×5 (03:48→20:13)
[2019-02-18 04:25] LABS: #Lymphocytes 1.1 thou/uL (1.20-3.40); #Monocytes 0.9 thou/uL (0.11-0.59); #Neutrophils 8.9 thou/uL (1.40-6.50); %Eosinophils 0.2 % (0.0-10.0); %Lymphocytes 10.2 % (21.0-51.0); %Monocytes 8.5 % (0.0-10.0); %Neutrophils 81.1 % (42.0-75.0); Hemoglobin 11.9 g/dL (14.0-18.0); Mean Corpuscular HGB CONC 34.7 g/dL (32.0-36.0); Mean Corpuscular Hemoglobin 31.8 pg (27.0-31.0); Mean Corpuscular Volume 91.6 fL (78.0-98.0); Mean Platelet Volume 7.6 fL (7.4-10.4); Platelet Count 176 thou/uL (130-400); RBC Distribution Width 12.5 % (11.5-14.5); Red Blood Cell (RBC) Count 3.74 mill/uL (4.70-6.10)
[2019-02-18 05:49] LABS: Anion Gap 10 mmol/L (10-20); BUN (Urea Nitrogen) 18 mg/dL (8.4-25.7); Calc. Creatinine Clearance 170 mL/min (70-130); Calcium 8.2 mg/dL (7.8-10.44); Carbon Dioxide 24 mmol/L (23-31); Chloride 109 mmol/L (98-107); Estimated GFR-MDRD Greater than 90; Glucose 123 mg/dL (80-115); Phosphorus 3.4 mg/dL (2.3-4.7); Sodium 139 mmol/L (136-145)
[2019-02-18] MEDS: Acetaminophen 500 MG TAB PO SCH ×3 (05:54→17:22)
[2019-02-18] MEDS: traMADol HCl 50 MG TAB PO SCH ×3 (05:55→17:21)
[2019-02-18] MEDS ORDERED: Amlodipine 5 MG TAB PO SCH (09:00)
[2019-02-18] MEDS ORDERED: Tamsulosin HCl 0.4 MG CAP PO SCH (09:00)
[2019-02-18] MEDS ORDERED: Losartan/Hydrochlorothiazide 100 mg/25 mg Tablet PO SCH (09:00)
[2019-02-18] MEDS: Tamsulosin HCl 0.4 MG CAP PO SCH (09:07)
[2019-02-18] MEDS: Aspirin 81 mg Enteric Coated Tablet PO SCH ×2 (09:07→20:11)
[2019-02-18] MEDS: Polyethylene Glycol 3350 17 GM Packet PO SCH (09:07)
[2019-02-18] MEDS: Senokot S 8.6-50 MG TAB PO SCH ×2 (09:07→20:11)
--- NOTE | 2019-02-18 14:04 | OP ---
DATE OF PROCEDURE: 02/17/2019 PREOPERATIVE DIAGNOSIS: Left intertrochanteric femur fracture. POSTOPERATIVE DIAGNOSIS: Left intertrochanteric femur fracture. PROCEDURE PERFORMED: TFN, left intertrochanteric femur. ANESTHESIA: General. PROFESSOR OF FINANCE: Homero. ESTIMATED BLOOD LOSS: 100 mL. IMPLANTS: Synthes 12 x 170 mm TFN nail with a 110 mm hip screw. COMPLICATIONS: None. DRAINS: None. SPECIMEN: None. OUTCOME: Near-anatomic alignment. INDICATIONS: Mr. Lion is a pleasant 63-year-old gentleman, who sustained a ground level fall, fracturing his left intertrochanteric femur. This fracture was remarkable for a large greater trochanteric fragment as well as a small lesser trochanteric fragment. Given this comminution and displacement, we recommended proceeding with stabilization with an intramedullary hip screw device. Informed consent has been obtained. I believe all questions have been answered. DESCRIPTION OF PROCEDURE: The patient was brought to the operating room and a time-out performed followed by induction of general anesthesia. Next, the patient was positioned supine on the fracture table with the injured limb held in longitudinal traction and internal rotation, which resulted in an acceptable reduction on both AP and lateral views. Next, sterile prep and drape were performed in the left lateral thigh. A vertical skin incision was made extending from the tip of the greater trochanter proximally. After the skin was sharply incised, dissection was carried down bluntly such that the tip of the greater trochanter could be palpated. Next, a threaded guidewire was inserted near the tip of the greater trochanter and passed into the proximal femoral canal. This was followed by passage of a step reamer over this guidewire. Next, the opening reamer was passed over the guidewire. This was then followed by insertion of a 12 x 170 mm short TFN device into the canal. Once it was brought to an appropriate depth, a second incision was made distal to the first and the hip screw jig was inserted through this small incision up against the lateral cortex of the femur. At this point, a guidewire was passed from the lateral cortex of the femur through the nail up into the neck and head of the femur, approaching a center-center location. Once appropriately positioned, measurement was taken off this pin and then 110 mm screw was inserted in standard fashion. The locking mechanism was engaged and then backed off 1/2 turn to allow for appropriate sliding of the hip screw. This was then followed by insertion of distal cross-lock screw using the appropriate jig. At the completion of this, the insertion instrument was removed from the top of the nail, and AP and lateral C-arm images were obtained that showed good alignment of fracture and acceptable positioning of hardware. The wound was irrigated with normal saline, then the proximal wound closed in layers with 0 Vicryl deep, followed by 2-0 Vicryl, and geoffrey for the skin. The small distal incision was closed with 2-0 Vicryl and geoffrey. Xeroform gauze and tape dressing were applied to the lateral thigh, and then the patient was transferred to recovery room in stable condition. There were no complications. The patient tolerated the procedure well. Job ID: [id number]
[2019-02-18] MEDS: traMADol HCl 50 MG TAB PO PRN (17:23)
--- NOTE | 2019-02-18 17:27 | PRG ---
DATE OF SERVICE: 02/18/2019 SUBJECTIVE: This is a 63-year-old gentleman, who tripped and fell landing on his left side. The patient is postop day #1 repair of left intertrochanteric femur fracture. The patient had no overnight events. The patient states that he is able to tolerate a diet and denies any nausea or vomiting. The patient states that he was able to work with physical therapy earlier today and was able to ambulate across the room and back to his bed. The patient does voice that he feels like he will need additional rehab. The patient's pain is well controlled at this time. OBJECTIVE: VITAL SIGNS: Temperature 97.9, pulse 70, respirations 20, SpO2 of 96% on room air, blood pressure 101/66. GENERAL: The patient is awake, alert, in no acute distress. RESPIRATORY: Equal chest rise and fall. No respiratory distress. Bilateral breath sounds clear. ABDOMEN: Soft, nontender, nondistended. PELVIS: Left hip dressing clean, dry, intact. Ice pack in place. EXTREMITIES: Moves all extremities. Distal pulses 2+ in all extremities. Normal sensation. LABORATORY DATA: WBC 11.0, RBC 3.74, hemoglobin 11.9, hematocrit 34.2, platelets 176. Sodium 139, potassium 4.0, chloride 109, BUN 18, creatinine 0.79, estimated GFR greater than 90, glucose 123, calcium 8.2, phosphorus 3.4, magnesium 2.0. IMPRESSION: 1. Status post mechanical fall. 2. Left comminuted intertrochanteric hip fracture postop day #1. 3. Hypokalemia, resolved. 4. Acute traumatic pain. 5. Urinary retention, resolved. 6. History of hypertension. PLAN: Continue regular diet. Continue physical and occupational therapy. Continue supportive care and pain regimen. Continue mechanical and chemical DVT prophylaxis. The patient is pending rehab screen. The plan has been discussed with the patient, who agrees. Job ID: [id number]
[2019-02-18] MEDS: Atorvastatin Calcium 20 MG TAB PO SCH (20:12)
[2019-02-19] MEDS: Acetaminophen 500 MG TAB PO SCH ×4 (00:11→23:16)
[2019-02-19] MEDS: traMADol HCl 50 MG TAB PO SCH ×5 (00:12→23:17)
[2019-02-19] MEDS: traMADol HCl 50 MG TAB PO PRN (00:14)
[2019-02-19] MEDS: Cyclobenzaprine 10 MG TAB PO PRN ×2 (01:44→09:42)
[2019-02-19] MEDS ORDERED: Ketorolac Tromethamine 30 MG/ML VIAL IVP SCH (01:45)
[2019-02-19] MEDS: Morphine 4 MG/ML VIAL SLOW IVP PRN ×2 (01:47→09:56)
[2019-02-19] MEDS ORDERED: traMADol HCl 50 MG TAB PO SCH (02:00)
--- NOTE | 2019-02-19 02:47 | PRG ---
DATE OF SERVICE: 02/19/2019 SUBJECTIVE: The patient was seen this evening after nursing reported difficulties with pain control. On my evaluation, the patient complained of left anterior thigh pain. He reported that after working with PT/OT and sitting up in a chair for most of the day, he has not been able to achieve adequate pain control, so he can rest. He described the pain as a wave-like sensation. He denied any burning, numbness, tingling, or loss of sensation in his lower extremity. He denied any cramping or tightness in his thigh. On my evaluation, the left thigh was soft and the pulses in the left lower extremity were intact. Good motor function and strength as well. OBJECTIVE: VITAL SIGNS: The patient is afebrile, hemodynamically stable. Breathing comfortably on room air. GENERAL: A well-appearing middle-aged male, sitting up in bed with some mild distress. PULMONARY: Equal chest rise and fall. No signs of acute respiratory distress. CARDIAC: Regular rate and rhythm. No murmurs, gallops, or rubs. GI: Abdomen is soft, nontender, and nondistended. EXTREMITIES: 2+ pulses in all extremities. No significant swelling noted. Gross motor and sensation is intact. Left thigh compartments are soft and compressible. There is minimal swelling to the left thigh. Surgical bandage is in place and clean and dry. NEUROLOGIC: GCS is 15. Gross motor and sensation is intact. ASSESSMENT: 1. Status post mechanical fall, on aspirin. 2. Left intertrochanteric femur fracture. 3. Acute traumatic pain. 4. History of hypertension. PLAN: The patient's p.o. pain medication of Toradol was increased to 100 mg scheduled q.6 h. An order was also placed for p.r.n. Flexeril q.8 h. We will continue 1 g acetaminophen q.6 h. as well as ibuprofen 800 mg q.8 h. We will give the patient a one time dose of 4 mg IV morphine with additional p.r.n. as needed. The patient will also receive 30 mg of IV Toradol once. We will continue to monitor for signs of compartment syndrome. There is no significant concern at this time. There is also a low concern for a DVT, and we will continue to monitor the patient closely as well. We will discuss the findings overnight with Dr. Darling in the morning unless he has noted an acute further change. Job ID: [id number]
[2019-02-19 05:58] LABS: #Basophils 0.1 thou/uL (0.0-0.2); #Eosinphils 0.4 thou/uL (0.0-0.7); #Monocytes 0.7 thou/uL (0.11-0.59); #Neutrophils 4.7 thou/uL (1.40-6.50); %Basophils 0.7 % (0.0-1.0); %Eosinophils 5.3 % (0.0-10.0); %Lymphocytes 25.4 % (21.0-51.0); %Monocytes 9.1 % (0.0-10.0); %Neutrophils 59.5 % (42.0-75.0); Hemoglobin 11.4 g/dL (14.0-18.0); Mean Corpuscular HGB CONC 33.6 g/dL (32.0-36.0); Mean Corpuscular Hemoglobin 31.1 pg (27.0-31.0); Mean Corpuscular Volume 92.7 fL (78.0-98.0); Mean Platelet Volume 7.5 fL (7.4-10.4); Platelet Count 178 thou/uL (130-400); RBC Distribution Width 12.6 % (11.5-14.5); Red Blood Cell (RBC) Count 3.65 mill/uL (4.70-6.10); White Blood Cell (WBC) Count 7.9 thou/uL (4.8-10.8)
[2019-02-19 06:17] LABS: Anion Gap 9 mmol/L (10-20); BUN (Urea Nitrogen) 18 mg/dL (8.4-25.7); Calc. Creatinine Clearance 153 mL/min (70-130); Carbon Dioxide 28 mmol/L (23-31); Chloride 108 mmol/L (98-107); Estimated GFR-MDRD 88; Glucose 93 mg/dL (80-115); Phosphorus 3.1 mg/dL (2.3-4.7); Potassium 4.2 mmol/L (3.5-5.1); Sodium 141 mmol/L (136-145)
[2019-02-19] MEDS: Polyethylene Glycol 3350 17 GM Packet PO SCH (08:39)
[2019-02-19] MEDS: Ibuprofen 800 MG TAB PO SCH ×3 (08:39→23:17)
[2019-02-19] MEDS: Senokot S 8.6-50 MG TAB PO SCH ×2 (08:39→20:39)
[2019-02-19] MEDS: Aspirin 81 mg Enteric Coated Tablet PO SCH ×2 (08:39→20:40)
[2019-02-19] MEDS: Tamsulosin HCl 0.4 MG CAP PO SCH (08:39)
[2019-02-19] MEDS ORDERED: Gabapentin 300 MG CAP PO SCH (11:00)
[2019-02-19] MEDS: Gabapentin 300 MG CAP PO SCH ×2 (16:05→20:40)
--- NOTE | 2019-02-19 16:16 | PRG ---
DATE OF SERVICE: 02/19/2019 SUBJECTIVE: This is a 63-year-old gentleman, who tripped and fell, sustaining a left intertrochanteric femur fracture. The patient is postop day #[address] Jean. The patient did have some left thigh pain last night. The patient thinks it might have been contributed to his physical therapy during the day. The patient reports that the increased pain medication did help that thigh pain. The patient also reports that the ice pack helps the pain to his thigh and hip. The patient continues to tolerate a regular diet. The patient is currently sitting up in the bedside chair in no acute distress. The patient voices no complaints at this time and reports moderate amount of pain currently. OBJECTIVE: VITAL SIGNS: Temperature 98.0, pulse 71, respirations 20, SpO2 of 96% on room air, blood pressure 122/88. GENERAL: Middle-aged gentleman, well-appearing, awake, alert, and oriented, in no distress, sitting up in the bedside chair. RESPIRATORY: Equal chest rise and fall, no respiratory distress. ABDOMEN: Soft, nontender, nondistended. PELVIS: Left hip dressing clean, dry, and intact, ice pack in place. EXTREMITIES: Moves all extremities. Distal pulses 2+ in all extremities. No edema. Normal sensation. LABORATORY DATA: WBC 7.9, RBC 3.65, hemoglobin and hematocrit stable. Sodium 141, potassium 4.2, chloride 108, BUN 18, creatinine 0.88, estimated GFR 88, glucose 93, calcium 8.0, phosphorus 3.1, magnesium 2.0. IMPRESSION: 1. Status post mechanical fall. 2. Left comminuted intertrochanteric hip fracture postop day #2 for repair. 3. Acute traumatic pain. 4. Urinary retention, resolved. 5. History of hypertension. PLAN: Continue regular diet. Continue physical and occupational therapy. We will increase the patient's gabapentin as the patient is still having moderate amount of pain. We will continue mechanical and chemical DVT prophylaxis. The patient is pending rehab screen and acceptance. The plan was discussed with the patient who agrees. The patient was examined by Dr. Darling this morning during morning rounds. Job ID: [id number]
[2019-02-19] MEDS: Atorvastatin Calcium 20 MG TAB PO SCH (20:40)
--- NOTE | 2019-02-20 00:02 | PRG ---
DATE OF SERVICE: SUBJECTIVE: Patient was seen briefly this evening during rounds. He reported pain was well controlled, tolerating a regular diet, and had no complaints at the time of my evaluation. OBJECTIVE: Patient is hemodynamically stable and afebrile. He is saturating 97% on room air. GENERAL: Well-appearing elderly male, lying in bed with no signs of acute distress. PULMONARY: Equal chest rise and fall. Clear breath sounds bilaterally. No signs of acute respiratory distress. ASSESSMENT: 1. Status post mechanical fall on aspirin. 2. Left intertrochanteric femur fracture. 3. History of hypertension. PLAN: Continue current home medications, pain regimen, and diet. Continue physical and occupational therapy. He is pending placement at a rehab facility. Job ID: [id number]
[2019-02-20] MEDS: traMADol HCl 50 MG TAB PO SCH ×3 (05:51→17:31)
[2019-02-20] MEDS: Acetaminophen 500 MG TAB PO SCH ×4 (05:52→17:31)
[2019-02-20] MEDS: Tamsulosin HCl 0.4 MG CAP PO SCH (08:26)
[2019-02-20] MEDS: Amlodipine 5 MG TAB PO SCH (08:26)
[2019-02-20] MEDS: Senokot S 8.6-50 MG TAB PO SCH ×2 (08:26→21:28)
[2019-02-20] MEDS: Polyethylene Glycol 3350 17 GM Packet PO SCH (08:26)
[2019-02-20] MEDS: Losartan/Hydrochlorothiazide 100 mg/25 mg Tablet PO SCH (08:27)
[2019-02-20] MEDS: Ibuprofen 800 MG TAB PO SCH ×2 (08:27→15:48)
[2019-02-20] MEDS: Gabapentin 300 MG CAP PO SCH ×3 (08:27→21:28)
[2019-02-20] MEDS: Aspirin 81 mg Enteric Coated Tablet PO SCH ×2 (08:27→21:28)
--- NOTE | 2019-02-20 18:01 | PRG ---
DATE OF SERVICE: 02/20/2019 This is Wyatt Rock PA-C dictating a report for Topher Darling DO. SUBJECTIVE: The patient is currently on the surgical floor. He is status post ground level fall, which he sustained a left intertrochanteric femur fracture. He is postop day #3, status post open reduction and internal fixation of same. He tolerated this procedure well. Today, he has progressed with therapy. He was able to get out of bed, unassisted, and was able to ambulate twice distance of 20 feet. States his pain is controlled. He is tolerating a diet. OBJECTIVE: VITAL SIGNS: Temperature 98.4, heart rate 72, blood pressure 132/85, respirations 18, and oxygen saturation 95% on room air. GENERAL: The patient is resting comfortably in a chair at bedside. He is awake, alert, and oriented x3. Richard Coma Scale is 15. The patient is in no distress. CHEST: Equal rise and fall. EXTREMITIES: Neurovascularly intact x4. Postop dressing is clean, dry, and intact. DIAGNOSTIC STUDIES: There are no labs or radiographs to review today. ASSESSMENT: 1. Status post ground level fall. 2. Status post open reduction and internal fixation of left intertrochanteric femur fracture. 3. Acute traumatic pain, stable, improved. 4. Urinary retention, resolved. 5. History of hypertension, stable. PLAN: Plan will be to continue physical and occupational therapy and await final placement decision. The patient is awaiting insurance approval for rehab. The patient was seen this morning with Dr. Darling during rounds. Job ID: [id number]
[2019-02-20] MEDS: Atorvastatin Calcium 20 MG TAB PO SCH (21:28)
--- NOTE | 2019-02-20 23:20 | PRG ---
DATE OF SERVICE: 02/20/2019 SUBJECTIVE: Mr. Lion is a _63 years old_ gentleman, who is status post ground level fall. He sustained left intertrochanteric femur fracture. This is postop day 3 , status post open reduction and internal fixation of left femur fracture. He has remained in surgical floor. He reports pain is well controlled. He is able to work with PT/OT today. He is able to walk 40 steps with assistance. He tolerates a regular diet. He reports not having bowel movement since coming to the hospital. I offered him lactulose. He refused lactulose tonight, but he will take lactulose early in the morning tomorrow. OBJECTIVE: GENERAL: The patient is lying down in bed comfortably, pleasant, in no acute distress. VITAL SIGNS: Stable. HEART: Regular rate and rhythm. ABDOMEN: Soft, nondistended. Normal bowel sounds. EXTREMITIES: Neurovascularly intact. Left hip dressing is clean, dry, intact. ASSESSMENT: 1. Status post ground level fall. 2. Status post open reduction and internal fixation of left intertrochanteric femur fracture, postop day 3. 3. Urinary retention, resolved. 4. History of hypertension, stable. PLAN: Continue supportive care. Continue physical and occupational therapy. Await for approval for rehab. Job ID: [id number] [facility]
[2019-02-21] MEDS: traMADol HCl 50 MG TAB PO SCH ×5 (00:04→23:38)
[2019-02-21] MEDS: Acetaminophen 500 MG TAB PO SCH ×5 (00:04→23:38)
[2019-02-21] MEDS: Ibuprofen 800 MG TAB PO SCH ×4 (00:05→23:39)
[2019-02-21] MEDS: Polyethylene Glycol 3350 17 GM Packet PO SCH (08:11)
[2019-02-21] MEDS: Senokot S 8.6-50 MG TAB PO SCH ×2 (08:12→22:21)
[2019-02-21] MEDS: Aspirin 81 mg Enteric Coated Tablet PO SCH ×2 (08:12→20:32)
[2019-02-21] MEDS: Amlodipine 5 MG TAB PO SCH (08:12)
[2019-02-21] MEDS: Losartan/Hydrochlorothiazide 100 mg/25 mg Tablet PO SCH (08:12)
[2019-02-21] MEDS: Tamsulosin HCl 0.4 MG CAP PO SCH (08:13)
[2019-02-21] MEDS: Gabapentin 300 MG CAP PO SCH ×3 (08:13→20:32)
--- NOTE | 2019-02-21 17:23 | PRG ---
DATE OF SERVICE: SUBJECTIVE: The patient remains on the surgical floor. He is status post ground level fall where he sustained a left hip fracture. He has undergone open reduction and internal fixation of this fracture. He is postop day #4. The patient has begin work with Physical and Occupational Therapy. He is continuing to advance with them. His pain is controlled. He is tolerating a diet and we are awaiting bowel function to return. OBJECTIVE: VITAL SIGNS: Temperature is 97.8, heart rate 73, blood pressure 132/87, respirations 18, oxygen saturations 94% on room air. GENERAL: The patient is resting comfortably, sitting in chair beside the bed. He is awake, alert, and oriented x3. Richard Coma Scale is 15. The patient appears in no distress. EXTREMITIES: Neurovascularly intact x4. Postop dressing is clean, dry, and intact. DIAGNOSTIC STUDIES: There are no labs or radiographs to review this morning. ASSESSMENT/PLAN: 1. Status post ground level fall. 2. Status post open reduction and internal fixation of left intertrochanteric femur fracture. PLAN: Plan will be to continue supportive care, Physical and Occupational Therapy, and await final placement decision. The patient was evaluated this morning with Dr. Darling during rounds. Job ID: [id number]
[2019-02-21] MEDS: Atorvastatin Calcium 20 MG TAB PO SCH (20:31)
[2019-02-21] MEDS: Cyclobenzaprine 10 MG TAB PO PRN (23:39)
[2019-02-22] MEDS: traMADol HCl 50 MG TAB PO SCH ×4 (05:01→23:32)
[2019-02-22] MEDS: Acetaminophen 500 MG TAB PO SCH ×4 (05:02→23:32)
[2019-02-22] MEDS: Amlodipine 5 MG TAB PO SCH (08:43)
[2019-02-22] MEDS: Tamsulosin HCl 0.4 MG CAP PO SCH (08:43)
[2019-02-22] MEDS: Ibuprofen 800 MG TAB PO SCH ×3 (08:43→23:32)
[2019-02-22] MEDS: Aspirin 81 mg Enteric Coated Tablet PO SCH ×2 (08:43→22:00)
[2019-02-22] MEDS: Gabapentin 300 MG CAP PO SCH ×3 (08:43→22:00)
[2019-02-22] MEDS: Losartan/Hydrochlorothiazide 100 mg/25 mg Tablet PO SCH (08:44)
[2019-02-22] MEDS: Senokot S 8.6-50 MG TAB PO SCH ×2 (08:44→22:00)
[2019-02-22] MEDS: Polyethylene Glycol 3350 17 GM Packet PO SCH (08:44)
--- NOTE | 2019-02-22 09:01 | PRG ---
DATE OF SERVICE: 02/21/2019 SUBJECTIVE: Mr. Lion is a 63-year-old gentleman, status post ground level fall. He sustained left intertrochanteric femur fracture and postop day 4 status post open reduction and internal fixation of left femur fracture. Postop, he states he has been doing good. Pain is well controlled. He is able to work with PT/OT around the floor. His urination and bowel movement are normal. Developed no fever or shortness of breath. OBJECTIVE: GENERAL: The patient is lying down in bed, comfortable, in no acute distress. VITAL SIGNS: Stable. HEART: Regular rhythm. ABDOMEN: Soft, nondistended, normal bowel sounds. EXTREMITIES: Neurovascular intact x 4, left hip fracture is clean, dry, intact. ASSESSMENT: 1. Ground level fall, status post open reduction and internal fixation of left intertrochanteric femur fracture, postop day 4. 2. Urinary retention, resolved. 3. History of hypertension stable. PLAN: Continue supportive care. Continue physical and occupational therapy. Await for approval for rehab. Job ID: [id number] [facility]
--- NOTE | 2019-02-22 14:19 | PRG ---
DATE OF SERVICE: 02/22/2019 SUBJECTIVE: Mr. 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 The patient underwent ORIF for this injury. He is postop day 5. The patient has been tolerating physical and occupational therapy well and working very hard. We are awaiting insurance approval for rehab for Mr. Lion. The patient states that his pain is getting better each day. His max pain today was 6/10 that was with active movement and weightbearing while walking. This pain subsides to 3 to 4/10 at rest, takes about 20 minutes for that pain to get better after resting from walking. The ice and pain medications helped him tremendously. OBJECTIVE: VITAL SIGNS: Temperature 98.1, pulse 89, respiratory rate 16, oxygen saturation 93% on room air, and blood pressure 120/ 78. GENERAL: The patient is awake, alert, and oriented x3, in no acute distress, sitting up in a chair upon entry to the room. CARDIAC: Regular rate and rhythm. No murmurs, gallops, or rubs. LUNGS: Clear to auscultation bilaterally. ABDOMEN: Soft, nondistended, and nontender to palpation. Bowel sounds present. EXTREMITIES: Moves all 4 extremities. Bandage over operative site is clean and dry. ASSESSMENT: 1. Ground level fall. 2. Intertrochanteric femur fracture, status post open reduction and internal fixation, postop day #5. Continue physical and occupational therapy to promote further healing. Awaiting placement for rehabilitation and insurance approval. The patient would be a great candidate for rehab as he is showing effort towards the continuation of his healing. Current pain regimen is appropriate. Continue acetaminophen 1000 mg p.o. q.6, Flexeril 10 mg p.o. daily q.8, ibuprofen 800 mg t.i.d., and tramadol 100 mg p.o. q.6 hours. The patient was seen and evaluated by Dr. Darling on morning rounds. Care plan discussed with him. Job ID: [id number] [facility]
--- NOTE | 2019-02-22 21:45 | PRG ---
DATE OF SERVICE: 02/22/2019 Mr. Lion is a 63-year-old gentleman, status post ground level fall. He has sustained left intertrochanteric femur fracture, postop day 5, status post ORIF of the left femur fracture. Postop, he has been doing good, working with PT and OT. He had been walking around the floor 2 times with a walker. He developed no fever or shortness of breath. His vitals had been stable. His urination and bowel regimen are normal. ASSESSMENT AND PLAN: 1. Ground level fall, status post open reduction and internal fixation of left femur fracture, postop day 5. 2. Urinary retention, resolved. 3. History of hypertension, stable. 4. Continue supportive care. Continue physical and occupational therapy. Await for approval for rehab. Job ID: [id number]
[2019-02-22] MEDS: Atorvastatin Calcium 20 MG TAB PO SCH (22:00)
[2019-02-22] MEDS: Cyclobenzaprine 10 MG TAB PO PRN (23:33)
[2019-02-23] MEDS: Acetaminophen 500 MG TAB PO SCH ×2 (06:26→12:34)
[2019-02-23] MEDS: traMADol HCl 50 MG TAB PO SCH ×2 (06:26→12:34)
[2019-02-23] MEDS ORDERED: Magnesium Citrate 300 ML BOT PO SCH (08:30)
[2019-02-23] MEDS: Gabapentin 300 MG CAP PO SCH (08:57)
[2019-02-23] MEDS: Ibuprofen 800 MG TAB PO SCH (08:57)
[2019-02-23] MEDS: Amlodipine 5 MG TAB PO SCH (08:57)
[2019-02-23] MEDS: Losartan/Hydrochlorothiazide 100 mg/25 mg Tablet PO SCH (08:58)
[2019-02-23] MEDS: Aspirin 81 mg Enteric Coated Tablet PO SCH (08:58)
[2019-02-23] MEDS: Tamsulosin HCl 0.4 MG CAP PO SCH (08:58)
[2019-02-23] MEDS: Polyethylene Glycol 3350 17 GM Packet PO SCH (09:00)
[2019-02-23] MEDS: Senokot S 8.6-50 MG TAB PO SCH (09:00)
[2019-02-23 12:13] VITALS: BP 124/79; TEMP 98.4
--- NOTE | 2019-02-24 05:14 | DIS ---
DATE OF ADMISSION: 02/16/2019 DATE OF DISCHARGE: 02/23/2019 ADMISSION DIAGNOSES: 1. Status post ground level fall. 2. Left intertrochanteric femur fracture. 3. History of hypertension. 4. Acute traumatic pain. CONSULTATIONS: Orthopedics, Dr. Jean. PROCEDURE PERFORMED: TFN, left intertrochanteric femur. SUMMARY: The patient is a 63-year-old man, who sustained a ground level fall, landing on his left hip. He was brought to the emergency department, where he underwent evaluation and examination was noted to have the above injury. The following day, he will be taken to the operating room to undergo his above procedure which he tolerated well. The patient will remain in our facility for a slightly extended period of time due to having an international insurance policies. The time difference caused delays and getting his insurance approval. Once insurance approval was finally made, the patient was able to be transferred to inpatient rehab. At the time of discharge, the patient was working and progressing with Physical and Occupational Therapy. His pain was controlled. He was tolerating a diet. His bowel function had returned. The patient will follow up with Dr. Jean in 2 to 3 weeks or sooner as needed. The patient may follow up with the [facility]uma [facility] as needed. Job ID: [id number]
--- NOTE | 2019-02-24 11:26 | EKG ---
Test Reason : Blood Pressure : / mmHG Vent. Rate : 075 BPM Atrial Rate : 075 BPM P-R Int : 174 ms QRS Dur : 118 ms QT Int : 424 ms P-R-T Axes : 055 -47 003 degrees QTc Int : 473 ms Normal sinus rhythm Left anterior fascicular block Left ventricular hypertrophy with QRS widening Abnormal ECG Confirmed by ALEJANDRO LYONS D.O. ([id number]), editor sound YENIFER RIVAS ([id number]) on 02/24/2019 11:26:43 AM Referred By: Confirmed By:ALEJANDRO LYONS D.O.
== END 2019-02-23 15:35 | disposition home or self-care (01) | DRG 482 ==
LOC: ERS 13:58 → SURG B 16:40
PROVIDERS: ADMIT Surgery; ATTEND Surgery
PROC: 0QS704Z Reposition Left Upper Femur with Internal Fixation Device, Open Approach (ICD-10-PCS; principal; 2019-02-17)
DX: S72.142A Displaced intertrochanteric fracture of left femur, initial encounter for closed fracture (principal); I10 Essential (primary) hypertension; E87.6 Hypokalemia; R33.9 Retention of urine, unspecified; W01.0XXA Fall on same level from slipping, tripping and stumbling without subsequent striking against object, initial encounter; Z98.890 Other specified postprocedural states; Z79.82 Long term (current) use of aspirin; Z79.899 Other long term (current) drug therapy; Z87.891 Personal history of nicotine dependence; E78.00 Pure hypercholesterolemia, unspecified
CPT/HCPCS: 36415; 71045; 76000; 80048; 80053; 82550; 83605; 83735; 84100; 85025; 85610; 85730; 86850; 86900; 86901; 93005; 96374; 96376; C1713; G0390; J0131; J0690; J1100; J1885; J2001; J2270; J2405; J2550; J2704; J2765; J3010; J3480; J7050; Q0162; S0028

== ENCOUNTER 2019-07-19 06:56 | Outpatient (CLI) | payer OTHER ==
[2019-07-19 16:08] LABS: #Basophils 0.1 thou/uL (0.0-0.2); #Eosinphils 0.4 thou/uL (0.0-0.7); #Lymphocytes 2.2 thou/uL (1.20-3.40); #Monocytes 0.6 thou/uL (0.11-0.59); #Neutrophils 5.7 thou/uL (1.40-6.50); %Basophils 0.6 % (0.0-1.0); %Eosinophils 4.7 % (0.0-10.0); %Lymphocytes 24.3 % (21.0-51.0); %Monocytes 7.1 % (0.0-10.0); %Neutrophils 63.4 % (42.0-75.0); Hemoglobin 15.1 g/dL (14.0-18.0); Mean Corpuscular HGB CONC 33.3 g/dL (32.0-36.0); Mean Corpuscular Hemoglobin 29.3 pg (27.0-31.0); Mean Platelet Volume 7.7 fL (7.4-10.4); Platelet Count 218 thou/uL (130-400); RBC Distribution Width 13.8 % (11.5-14.5); Red Blood Cell (RBC) Count 5.17 mill/uL (4.70-6.10)
[2019-07-19 16:11] LABS: Bacteria/HPF None Seen HPF (None Seen); Bilirubin Negative (Negative); Blood, Urine Negative (Negative); Clarity Clear (Clear); Glucose, Urine (Dipstick) 70 mg/dL (Negative); Leukocyte Negative Leu/uL (Negative); Nitrite Negative (Negative); Protein, Urine (Dipstick) Negative (Neg-Trace); RBC/HPF 0-3 HPF (0-3); Squamous Epithelial None Seen HPF (0-3); Urobilinogen Normal mg/dL (Less than 2); WBC/HPF 0-3 HPF (0-3)
[2019-07-19 16:12] LABS: Prothrombin Time 12.9 SEC (12.0-14.7)
[2019-07-19 16:25] LABS: Anion Gap 14 mmol/L (10-20); BUN (Urea Nitrogen) 20 mg/dL (8.4-25.7); Calc. Creatinine Clearance 0 mL/min (70-130); Calcium 8.8 mg/dL (7.8-10.44); Carbon Dioxide 23 mmol/L (23-31); Chloride 103 mmol/L (98-107); Estimated GFR-MDRD 72; Glucose 166 mg/dL (80-115); Potassium 3.7 mmol/L (3.5-5.1); Sodium 136 mmol/L (136-145)
== END 2019-07-19 06:57 | disposition home or self-care (01) ==
LOC: LABBT 06:56
PROVIDERS: ATTEND Orthopaedic Surgery
DX: Z01.812 Encounter for preprocedural laboratory examination (principal); M17.0 Bilateral primary osteoarthritis of knee
CPT/HCPCS: 80048; 81001; 85025; 85610; 87081

== ENCOUNTER 2019-07-19 15:00 | Inpatient (IN) | payer OTHER ==
[2019-07-19 15:02] VITALS: BMI 31.7
[2019-07-31] MEDS ORDERED: Tranexamic Acid 1,000 MG/10 ML VIAL ONE (09:57)
[2019-07-31] MEDS ORDERED: Sodium Chloride 0.9% 100 ML ONE (09:57)
[2019-07-31] MEDS ORDERED: Midazolam HCl 2 mg/2 ml Vial ONE (10:51)
[2019-07-31] MEDS ORDERED: Scopolamine 1.5 mg/72 hour Patch ONE (10:51)
[2019-07-31] MEDS ORDERED: Fentanyl 100 MCG/2 ML VIAL ONE ×6 (10:51→15:18)
[2019-07-31] MEDS ORDERED: Dexamethasone 20 MG/5 ML VIAL ONE (11:38)
[2019-07-31] MEDS ORDERED: Lidocaine 1% PF 5 ML VIAL ONE (11:38)
[2019-07-31] MEDS ORDERED: PROPOFOL 200 MG/20 ML VIAL ONE (11:38)
[2019-07-31] MEDS ORDERED: Ondansetron PF 4 MG/2 ML Vial ONE ×2 (11:38→15:46)
[2019-07-31] MEDS ORDERED: Ropivacaine 0.5% HCl/PF (150 MG/30 ML VIAL) ONE (11:38)
[2019-07-31] MEDS ORDERED: Ropivacaine 0.2% HCl/PF (40 MG/20 ML VIAL) ONE (11:38)
[2019-07-31] MEDS ORDERED: Acetaminophen 325 MG TAB PO PRN ×2 (11:57→15:09)
[2019-07-31] MEDS ORDERED: diphenhydrAMINE 25 MG CAP PO PRN (11:57)
[2019-07-31] MEDS ORDERED: Promethazine HCl 25 MG/ML VIAL IM PRN ×3 (11:57→15:09)
[2019-07-31] MEDS ORDERED: Ondansetron PF 4 MG/2 ML Vial IVP PRN ×2 (11:57→15:09)
[2019-07-31] MEDS ORDERED: HYDROcodone/Acetaminophen 10/325 mg Tablet PO PRN ×3 (11:57→15:09)
[2019-07-31] MEDS ORDERED: Zolpidem Tartrate 5 MG TAB PO PRN ×2 (11:57→15:09)
[2019-07-31] MEDS ORDERED: Promethazine HCl 25 MG/ML VIAL SLOW IVP PRN (12:56)
[2019-07-31] MEDS ORDERED: Ondansetron HCl/PF 4 MG/2 ML Vial IVP PRN (12:56)
[2019-07-31] MEDS ORDERED: Ketorolac Tromethamine 30 MG/ML VIAL IM SCH (14:00)
--- NOTE | 2019-07-31 14:51 | RAD ---
LEFT KNEE 2 VIEWS: Date: 07/31/2019 HISTORY: Knee replacement. Postop. FINDINGS: Total knee prosthesis is in place. No perihardware lucency. Metallic anchor at the distal femur with the appearance of ACL reconstruction. Gas and fluid within the suprapatellar bursa. Soft tissue swelling and gas. IMPRESSION: Left knee prosthesis is in good radiographic position. POS: [facility]
[2019-07-31] MEDS ORDERED: Ketorolac Tromethamine 30 MG/ML VIAL ONE (14:59)
[2019-07-31] MEDS ORDERED: traMADol HCl 50 MG TAB PO PRN ×2 (15:09)
[2019-07-31] MEDS ORDERED: Ropivacaine HCl/PF 250 ML in Premix Bag 1 BAG NERVE BLCK SCH (15:09)
[2019-07-31] MEDS ORDERED: Fentanyl 100 MCG/2 ML VIAL IV PRN (15:10)
[2019-07-31] MEDS ORDERED: HYDROcodone/Acetaminophen 10/325 mg Tablet ONE (15:35)
[2019-07-31] MEDS ORDERED: Promethazine HCl 25 MG/ML VIAL ONE (15:46)
--- NOTE | 2019-07-31 16:43 | OP ---
DATE OF PROCEDURE: 07/31/2019 PREOPERATIVE DIAGNOSIS: End-stage tricompartmental osteoarthritis, left knee. POSTOPERATIVE DIAGNOSIS: End-stage tricompartmental osteoarthritis, left knee. PROCEDURES PERFORMED: 1. Explantation of hardware, left knee (left knee anterior cruciate ligament reconstruction interference screw x1). 2. Cemented cruciate-sparing computer-assisted navigated left total knee arthroplasty. FORMING MACHINE UPKEEP MECHANIC HELPER: Edwardo Brown PA-C. ANESTHESIA: General via LMA, augmented with indwelling adductor canal block and single-shot sciatic block. COMPONENTS USED: [employer] Triathlon cemented cruciate-sparing primary femoral component size 6 with a size 7 cemented primary Triathlon tibial base plate, 11 mm polyethylene fixed bearing insert, and a 38 patella button. TOURNIQUET TIME: 64 minutes at 300 mmHg. FINDINGS: 1. End-stage severe degenerative tricompartmental disease, [id number] arthrosis, periarticular osteophyte formation, large serous effusion, hypertrophic synovium, and changes consistent with degenerative genu varum. 2. Absent anterior cruciate ligament. ESTIMATED BLOOD LOSS: Less than 100. INPUT: 1500 mL of crystalloid. DRAINS: None. SPECIMENS: None. COMPLICATIONS: None. COUNTS: Correct. INDICATIONS FOR SURGERY: Pavan is a 63-year-old male, who has had progressive left knee pain, interfering standing and walking for the last 5 to 7 years. He has failed conservative management and elected to proceed with total knee arthroplasty as definitive treatment for his pain. PROCEDURE IN DETAIL: After informed consent was obtained in the preoperative holding area, the patient was taken to the operative suite where general anesthesia was induced. Once adequate level of general anesthesia was obtained, the patient was positioned and a well-padded tourniquet was placed around the left proximal thigh. The left lower extremity was then prepped and draped in the usual sterile fashion. Prior to exsanguination, a time-out was called and all members of the surgical team agreed upon site, surgeon, and patient. The extremity was then exsanguinated and the tourniquet was raised. A midline longitudinal incision was then made directly over the patella extending 2 fingerbreadths above the superior pole of the patella and 2 fingerbreadths inferior to the inferior patellar pole of the patella. Deeper subcutaneous layers were dissected sharply and local bleeding was controlled with Bovie electrocautery. A quad tendon longitudinal split was then made sharply and a median parapatellar arthrotomy was carried out both sharp and with Bovie electrocautery, carried down to 1 fingerbreadth medial to the tibial tubercle. The knee was then placed into flexion and the patella was everted nicely, and a copious fat pad ectomy was performed allowing for greater exposure of the tibia. The computer-assisted distal femoral fiducial was then placed and pinned firmly, and the distal femoral cutting guide was pinned firmly into place. The oscillating saw was then used to remove the appropriate amount of bone. The 4-in-1 cutting block was then placed on the distal femur and the oscillating saw was used to remove the appropriate amount of bone off the anterior, posterior, and chamfer cuts. After completion of bone cuts, the anterior cruciate ligament was resected sharply and the posterior cruciate ligament retractor was placed and the tibia was subluxed for better exposure. Partial meniscectomies were carried out, and the tibial computer-assisted fiducial was pinned, and the cutting guide was placed. Oscillating saw was then used to remove the bone, with Hohmann retractors used to take care and protect the collateral ligaments. After the tibial resection was performed, a laminar clerical coordinator was placed in between the freshened bone cuts. The knee placed at 90 degrees and further bilateral meniscectomies were carried out, and the curved osteotome and curettage were used to remove any excess bone spurs in the posterior compartment. The trial femoral component, tibial baseplate were placed with the appropriate polyethylene trial insert with an appropriate polyethylene spacer and patellar button. The knee was taken through full range of motion with flexion and extension from 0 to 90 degrees and patellar broach squarely in the trochlea without any squinting or subluxation noted. The knee was also stable to varus and valgus stressing at 0, 15, 45, and 90 degrees of flexion. The drawer was negative. All trial components were then removed and the keel punch was used to provide the appropriate defect in the tibia with a mallet. The freshened bone cuts were copiously irrigated with pulsatile lavage of about 1.5 L to remove all excess debris. The freshened bone cuts were then dried with suction and lap sponge. The knee was placed in flexion and retractors were placed to provide access to all bone cuts. Tobramycin-impregnated methyl methacrylate cement was then placed on the freshened bone cuts and implants which were malleted firmly into place. Curettage and Griswold elevators were used to remove any excess bone cement. The knee was placed into full extension and the patellar button was placed under compression, and the cement was allowed to cure. Once completed, the components were again taken through full range of motion and copious irrigation of the knee was carried out with another liter of normal saline. All components were inspected fully with full range of motion and varus and valgus stressing. There was no laxity noted and full extension was observed clinically. Primary closure was accomplished with #2 interrupted Vicryl stitch of the arthrotomy defect. This was oversewn with a #2 running Quill barbed stitch. The gravitational platelet system was then injected into the arthrotomy prior to closure. The subcutaneous layer was then closed with a running 0 barbed Monocryl stitch and skin closure accomplished with a running subcuticular 3-0 Monocryl barbed Quill stitch and augmented with cement on the skin. Tourniquet was lowered. Good spontaneous return of distal pulses was noted clinically and a sterile dressing was applied to the incision. The procedure was terminated without any complications. The patient was awakened in the operative suite and the was removed, and the patient was taken to the recovery room in stable condition. Job ID: [id number]
[2019-07-31] MEDS: Sodium Chloride 0.9% 1,000 ML IV SCH ×2 (19:14→20:24)
[2019-07-31] MEDS: Ketorolac Tromethamine 30 MG/ML VIAL IVP SCH (19:17)
[2019-07-31] MEDS: CEFAZOLIN 2 GM in Premix Bag 1 BAG IVPB SCH (19:18)
[2019-07-31] MEDS: Ferrous Gluconate 324 MG TAB PO SCH (19:18)
[2019-07-31] MEDS: Senokot S 8.6-50 MG TAB PO SCH (19:18)
[2019-07-31] MEDS: Aspirin 81 mg Enteric Coated Tablet PO SCH (19:18)
[2019-08-01] MEDS: Ketorolac Tromethamine 30 MG/ML VIAL IVP SCH ×5 (01:03→23:47)
[2019-08-01] MEDS: CEFAZOLIN 2 GM in Premix Bag 1 BAG IVPB SCH (01:03)
[2019-08-01 05:17] LABS: Hemoglobin 12.5 g/dL (14.0-18.0); Mean Corpuscular Hemoglobin 28.5 pg (27.0-31.0); Mean Corpuscular Volume 88.9 fL (78.0-98.0); Mean Platelet Volume 7.3 fL (7.4-10.4); Platelet Count 228 thou/uL (130-400); RBC Distribution Width 13.3 % (11.5-14.5); White Blood Cell (WBC) Count 12.5 thou/uL (4.8-10.8)
[2019-08-01] MEDS: Sodium Chloride 0.9% 1,000 ML IV SCH ×2 (07:22→17:56)
[2019-08-01] MEDS: Senokot S 8.6-50 MG TAB PO SCH ×2 (08:03→20:15)
[2019-08-01] MEDS: Aspirin 81 mg Enteric Coated Tablet PO SCH ×2 (08:03→20:14)
[2019-08-01] MEDS: Multivitamin W/ Minerals 1 TAB PO SCH (08:03)
[2019-08-01] MEDS: Ferrous Gluconate 324 MG TAB PO SCH ×2 (08:03→20:15)
[2019-08-01] MEDS: Amlodipine 5 MG TAB PO SCH (08:04)
[2019-08-01] MEDS: Losartan/Hydrochlorothiazide 100 mg/25 mg Tablet PO SCH (08:04)
[2019-08-01] MEDS: Aspirin Chewable 81 MG TAB PO SCH (08:05)
--- NOTE | 2019-08-01 08:43 | PRG ---
DATE OF SERVICE: 08/01/2019 SUBJECTIVE: Pavan is a 63-year-old male, postoperative day 1 from left total knee arthroplasty. He is doing relatively well. He has no complaints this morning. OBJECTIVE: VITAL SIGNS: Temperature 97.7, pulse 77, respiratory rate 20 and nonlabored, blood pressure is 130/77. NEUROLOGIC: He is alert and oriented to person, place, time, and situation. Responsive and appropriate with examiner. Grossly nonfocal. EXTREMITIES: His incision is clean and closed. No erythema. No strike through. He is neurovascularly intact in the left lower extremity. LABORATORY DATA: Hemoglobin and hematocrit 12.5 and 39.1. IMPRESSION: A 63-year-old male is postoperative day 1 of left total knee arthroplasty, doing well. PLAN: Continue current care. Probable discharge to home tomorrow. Job ID: [id number]
[2019-08-01] MEDS ORDERED: hydrALAZINE 25 MG TAB PO PRN (10:07)
[2019-08-01] MEDS: HYDROcodone/Acetaminophen 10/325 mg Tablet PO PRN ×2 (10:31→23:46)
--- NOTE | 2019-08-01 16:18 | CON ---
DATE OF CONSULTATION: PRIMARY CARE PHYSICIAN: Dr. Rolanda Velazquez. REASON FOR ADMISSION: Left total knee replacement. HISTORY OF PRESENT ILLNESS: Mr. Lion is a very pleasant 63-year-old gentleman, who has a history of hypertension. He has also had a transient ischemic attack in the past. He has severe osteoarthritis of the left knee and had failed outpatient management. The patient also recently had a fracture of his hip, and as a result, he believes he was placing more pressure on the knee and noticed that when he walks, he was having quite a bit of crepitus in his knee and was also noticing that he was walking "gimpy." As a result, he saw his orthopedic surgeon, who recommended total knee replacement and he is being admitted for this. When we come to see him, the patient says that he is basically feeling fine. He does not have any complaints. He denies any headaches. No dizziness. No chest pain. No shortness of breath. No abdominal pain. No nausea. No vomiting. His pain in the knee is well controlled. REVIEW OF SYSTEMS: All systems are reviewed and are negative except for that mentioned in the history of present illness. PAST MEDICAL HISTORY: Significant for; 1. Hypertension. 2. Transient ischemic attack. 3. Elevated cholesterol. PAST SURGICAL HISTORY: He has had a left arm surgery. He had crushed finger, that had to be repaired in 1981. In 1973, he had ankle surgery and right knee surgery, and a recent hip repair in February 2019. ALLERGIES: NO KNOWN DRUG ALLERGIES. SOCIAL HISTORY: He is a former smoker, he quit 22 years ago. He also used to drink and quit 33 years ago. He does admit to using some illicit drugs in the past as well. FAMILY HISTORY: Significant for hypertension in both parents and a brother, who of cancer. CURRENT MEDICATIONS: Include; 1. Norvasc 5 mg daily. 2. Losartan/hydrochlorothiazide 100/25 one tablet daily. 3. Motrin 800 mg as needed. 4. Lipitor 40 mg daily. 5. Aspirin 81 mg a day. PHYSICAL EXAMINATION: GENERAL: He is alert and oriented. He appears to be in no acute distress. He is very nice, jovial gentleman. VITAL SIGNS: His blood pressure is 130/77, heart rate 77, respiratory rate of 20, temperature is 97.7. HEENT: Pupils are equal, round, and reactive. Extraocular muscles are intact. Sclerae anicteric. NECK: No adenopathy. No bruits. LUNGS: Clear to auscultation. There is no wheezing, no rales, no rhonchi. CARDIOVASCULAR: He has a normal S1, S2. There is no S3 or S4. No murmurs, clicks, or rubs. ABDOMEN: Obese. It is soft, nontender, and nondistended. Positive for bowel sounds. No rebound. No guarding. No organomegaly. EXTREMITIES: He has trace pedal edema on the left lower extremity and some edema in the left knee. He has good dorsalis pedis pulses bilaterally. NEUROLOGIC: The exam is nonfocal. He did have some hammertoe deformities on both feet. SKIN AND INTEGUMENT: No skin changes. No rash. LABORATORY DATA: Lab results are reviewed. He had a CBC today with a white blood cell count 12.5, hemoglobin 12.5, hematocrit is 39.1, and platelet count is 228. ASSESSMENT AND PLAN: 1. This is a pleasant 63-year-old gentleman, who is being admitted for an elective total knee replacement. He is currently doing quite well. His blood pressure is very well controlled. I would go ahead and continue his home medications including the losartan-hydrochlorothiazide as well as the amlodipine, which you have already done, and we will add hydralazine as needed for elevated blood pressure. 2. Hypercholesterolemia. Continue his Lipitor. 3. Status post left total knee replacement. DVT prophylaxis will be as per the primary team as well as symptom management. We will be happy to follow along with you. Job ID: [id number]
[2019-08-01] MEDS ORDERED: Atorvastatin Calcium 20 MG TAB PO SCH (21:00)
[2019-08-02] MEDS: Sodium Chloride 0.9% 1,000 ML IV SCH (04:06)
[2019-08-02] MEDS: HYDROcodone/Acetaminophen 10/325 mg Tablet PO PRN ×2 (06:05→11:51)
[2019-08-02] MEDS: Ketorolac Tromethamine 30 MG/ML VIAL IVP SCH (06:06)
[2019-08-02] MEDS: Ferrous Gluconate 324 MG TAB PO SCH (08:37)
[2019-08-02] MEDS: Senokot S 8.6-50 MG TAB PO SCH (08:37)
[2019-08-02] MEDS: Aspirin 81 mg Enteric Coated Tablet PO SCH (08:37)
[2019-08-02] MEDS: Aspirin Chewable 81 MG TAB PO SCH (08:37)
[2019-08-02] MEDS: Multivitamin W/ Minerals 1 TAB PO SCH (08:37)
[2019-08-02] MEDS: Amlodipine 5 MG TAB PO SCH (08:38)
[2019-08-02] MEDS: Losartan/Hydrochlorothiazide 100 mg/25 mg Tablet PO SCH (08:38)
[2019-08-02 08:41] VITALS: BP 114/73; TEMP 98.1
== END 2019-08-02 12:48 | disposition home or self-care (01) | DRG 470 ==
LOC: SURG A 07-31 09:36
PROVIDERS: ADMIT Orthopaedic Surgery; ATTEND Orthopaedic Surgery
PROC: 0SRD0J9 Replacement of Left Knee Joint with Synthetic Substitute, Cemented, Open Approach (ICD-10-PCS; principal; 2019-07-31)
PROC: 0SPD04Z Removal of Internal Fixation Device from Left Knee Joint, Open Approach (ICD-10-PCS; 2019-07-31)
PROC: 8E0YXBZ Computer Assisted Procedure of Lower Extremity (ICD-10-PCS; 2019-07-31)
DX: M17.12 Unilateral primary osteoarthritis, left knee (principal); I10 Essential (primary) hypertension; E78.00 Pure hypercholesterolemia, unspecified; Z86.73 Personal history of transient ischemic attack (TIA), and cerebral infarction without residual deficits; Z87.891 Personal history of nicotine dependence; Z79.899 Other long term (current) drug therapy; Z79.82 Long term (current) use of aspirin
CPT/HCPCS: 36415; 85027; 93005; 93010; C1713; C1776; J0690; J1100; J1885; J2001; J2250; J2405; J2550; J2704; J2795; J3010; J3490

== ENCOUNTER 2021-07-06 07:50 | Outpatient (CLI) | payer OTHER | END 2021-07-06 07:51 | disposition home or self-care (01) | LOC: RAD-FRANK 07:50 | PROVIDERS: ATTEND Nurse Practitioner Family | DX: M25.572 Pain in left ankle and joints of left foot (principal); M79.89 Other specified soft tissue disorders ==

== ENCOUNTER 2023-02-07 11:37 | Outpatient (CLI) | payer OTHER ==
[2023-02-07 12:46] LABS: #Basophils 0.1 10x3/uL (0.0-0.2); #Eosinphils 0.5 10x3/uL (0.0-0.5); #Monocytes 0.6 10x3/uL (0.0-1.1); #Neutrophils 5.4 10x3/uL (1.5-8.4); %Eosinophils 6.6 % (0.0-6.0); %Lymphocytes 18.6 % (18.0-47.0); %Monocytes 7.8 % (0.0-10.0); %Neutrophils 65.6 % (40.0-75.0); Hematocrit 45.4 % (38.8-50.0); Hemoglobin 15.3 g/dL (13.5-17.5); Mean Corpuscular HGB CONC 33.7 g/dL (32.0-36.0); Mean Platelet Volume 9.8 fl (7.4-10.4); Platelet Count 254 10x3/uL (150-450); RBC Distribution Width 12.8 % (11.5-14.5); White Blood Cell (WBC) Count 8.2 10x3/uL (3.5-10.5)
[2023-02-07 12:55] LABS: Prothrombin Time 10.5 sec (9.5-12.1)
[2023-02-07 13:17] LABS: Anion Gap 14 mmol/L (10-20); BUN (Urea Nitrogen) 25 mg/dL (8.4-25.7); Calc. Creatinine Clearance 0 mL/min (70-130); Calcium 9.3 mg/dL (7.8-10.44); Carbon Dioxide 26 mmol/L (23-31); Chloride 102 mmol/L (98-107); Estimated GFR 60; Glucose 110 mg/dL (80-115); Potassium 3.9 mmol/L (3.5-5.1); Sodium 138 mmol/L (136-145)
== END 2023-02-07 11:38 | disposition home or self-care (01) ==
LOC: LABBT 11:37
PROVIDERS: ATTEND Orthopaedic Surgery
DX: Z01.818 Encounter for other preprocedural examination (principal); M17.11 Unilateral primary osteoarthritis, right knee
CPT/HCPCS: 80048; 85025; 85610; 87081; 93005; 93010

== ENCOUNTER 2023-02-10 07:21 | Observation (INO) | payer OTHER ==
[2023-02-07 12:16] VITALS: BMI 36.1
[2023-02-10] MEDS ORDERED: Tranexamic Acid 1,000 MG/10 ML VIAL ONE (07:37)
[2023-02-10] MEDS ORDERED: Sodium Chloride 0.9% 100 ML ONE ×2 (07:37→07:38)
[2023-02-10] MEDS ORDERED: CEFAZOLIN 2 GM VIAL ONE (07:38)
[2023-02-10] MEDS ORDERED: VANCOMYCIN 2 GRAM/500 ML BAG 2 GM in Premix Bag 1 BAG IVPB SCH (07:45)
[2023-02-10] MEDS ORDERED: Bupivacaine PF 0.5% 30 ML VIAL ONE (08:13)
[2023-02-10] MEDS ORDERED: EPINEPHrine 1 MG/ML AMP ONE (08:13)
[2023-02-10] MEDS ORDERED: Midazolam HCl 2 mg/2 ml Vial ONE (08:13)
[2023-02-10] MEDS ORDERED: fentaNYL 50 mcg/mL 1 mL Vial ONE ×4 (08:13→12:06)
[2023-02-10] MEDS ORDERED: fentaNYL 50 mcg/mL 1 mL Vial SLOW IVP PRN ×2 (09:18→09:30)
[2023-02-10] MEDS ORDERED: Zolpidem Tartrate 5 MG TAB PO PRN ×2 (09:30)
[2023-02-10] MEDS ORDERED: HYDROcodone/Acetaminophen 10/325 mg Tablet PO PRN (09:30)
[2023-02-10] MEDS ORDERED: Ondansetron PF 4 MG/2 ML Vial IVP PRN ×2 (09:30)
[2023-02-10] MEDS ORDERED: Acetaminophen 325 MG TAB PO PRN (09:30)
[2023-02-10] MEDS ORDERED: Ropivacaine 0.2% 550 ML 550 ML NERVE BLCK SCH (09:30)
[2023-02-10] MEDS ORDERED: Promethazine HCl 25 MG/ML VIAL IM PRN ×3 (09:30→12:09)
[2023-02-10] MEDS ORDERED: traMADol HCl 50 MG TAB PO PRN ×2 (09:30)
[2023-02-10] MEDS ORDERED: diphenhydrAMINE 25 MG CAP PO PRN (09:30)
[2023-02-10] MEDS ORDERED: Bupivacaine HCl 0.5%/Epinephrine 1:200,000/PF 30 ml Vial ONE (09:52)
[2023-02-10] MEDS ORDERED: Ketorolac Tromethamine 30 MG/ML VIAL ONE (10:02)
[2023-02-10] MEDS ORDERED: Dexamethasone 20 MG/5 ML VIAL ONE (10:02)
[2023-02-10] MEDS ORDERED: PROPOFOL 200 MG/20 ML VIAL ONE (10:02)
[2023-02-10] MEDS ORDERED: Ondansetron PF 4 MG/2 ML Vial ONE (10:02)
[2023-02-10] MEDS ORDERED: Lidocaine 1% PF 5 ML VIAL ONE (10:02)
[2023-02-10] MEDS ORDERED: PACU-Morphine 4MG/ML VIAL SLOW IVP PRN (12:09)
[2023-02-10] MEDS ORDERED: Ondansetron HCl/PF 4 MG/2 ML Vial IVP PRN (12:09)
[2023-02-10] MEDS ORDERED: HYDROmorphone 2 MG/ML VIAL SLOW IVP PRN (12:09)
[2023-02-10] MEDS ORDERED: HYDROmorphone 0.5 MG/0.5 ML SYRINGE ONE (12:15)
[2023-02-10] MEDS ORDERED: Meperidine HCl/PF 25 MG/ML VIAL ONE (12:37)
[2023-02-10] MEDS ORDERED: fentaNYL PF 100 MCG/2 ML SYRINGE ONE (12:37)
[2023-02-10] MEDS ORDERED: HYDROcodone/Acetaminophen 10/325 mg Tablet ONE (14:26)
[2023-02-10] MEDS: HYDROcodone/Acetaminophen 10/325 mg Tablet PO PRN ×2 (14:28→18:30)
[2023-02-10] MEDS: Sodium Chloride 0.9% 1,000 ML IV SCH ×2 (15:08→15:12)
[2023-02-10] MEDS: Ketorolac Tromethamine 30 MG/ML VIAL IVP SCH ×2 (15:09→21:06)
[2023-02-10] MEDS: CEFAZOLIN 2 GM in Sodium Chloride 0.9% 100 ML IVPB SCH ×2 (15:12→23:20)
[2023-02-10] MEDS: Ferrous Gluconate 324 MG TAB PO SCH (21:04)
[2023-02-10] MEDS: Senokot S 8.6-50 MG TAB PO SCH (21:04)
[2023-02-10] MEDS: Aspirin 81 mg Enteric Coated Tablet PO SCH (21:06)
[2023-02-11] MEDS: Sodium Chloride 0.9% 1,000 ML IV SCH ×2 (05:19→16:28)
[2023-02-11] MEDS: Ketorolac Tromethamine 30 MG/ML VIAL IVP SCH ×3 (05:19→21:37)
[2023-02-11] MEDS: HYDROcodone/Acetaminophen 10/325 mg Tablet PO PRN ×3 (05:20→18:10)
[2023-02-11 06:51] LABS: Hematocrit 33.7 % (42.0-52.0); Hemoglobin 11.1 g/dL (14.0-18.0); Mean Corpuscular HGB CONC 32.9 g/dL (32.0-36.0); Mean Corpuscular Hemoglobin 30.3 pg (27.0-31.0); Mean Corpuscular Volume 92.1 fl (78.0-98.0); Mean Platelet Volume 9.7 fL (7.4-10.4); Platelet Count 217 10x3/uL (130-400); RBC Distribution Width 13.2 % (11.5-14.5); Red Blood Cell (RBC) Count 3.66 mill/uL (4.70-6.10); White Blood Cell (WBC) Count 12.7 10x3/uL (4.8-10.8)
[2023-02-11] MEDS: Amlodipine 5 MG TAB PO SCH (08:55)
[2023-02-11] MEDS: Aspirin 81 mg Enteric Coated Tablet PO SCH ×2 (08:55→21:37)
[2023-02-11] MEDS: Senokot S 8.6-50 MG TAB PO SCH ×2 (08:55→21:37)
[2023-02-11] MEDS: Losartan/Hydrochlorothiazide 100 mg/25 mg Tablet PO SCH (08:56)
[2023-02-11] MEDS: Multivitamin W/ Minerals 1 TAB PO SCH (08:56)
[2023-02-11] MEDS: Ferrous Gluconate 324 MG TAB PO SCH ×2 (08:56→21:37)
[2023-02-11] MEDS ORDERED: Atorvastatin Calcium 40 MG TAB PO SCH (21:00)
[2023-02-12] MEDS: Sodium Chloride 0.9% 1,000 ML IV SCH ×2 (00:46→12:15)
[2023-02-12] MEDS: Ketorolac Tromethamine 30 MG/ML VIAL IVP SCH (05:41)
[2023-02-12 07:04] LABS: Hematocrit 32.2 % (42.0-52.0); Hemoglobin 10.5 g/dL (14.0-18.0); Mean Corpuscular HGB CONC 32.6 g/dL (32.0-36.0); Mean Corpuscular Hemoglobin 29.9 pg (27.0-31.0); Mean Corpuscular Volume 91.7 fl (78.0-98.0); Mean Platelet Volume 9.8 fL (7.4-10.4); Platelet Count 205 10x3/uL (130-400); RBC Distribution Width 13.5 % (11.5-14.5); Red Blood Cell (RBC) Count 3.51 mill/uL (4.70-6.10); White Blood Cell (WBC) Count 9.7 10x3/uL (4.8-10.8)
[2023-02-12] MEDS: HYDROcodone/Acetaminophen 10/325 mg Tablet PO PRN (08:47)
[2023-02-12] MEDS: Aspirin 81 mg Enteric Coated Tablet PO SCH (08:48)
[2023-02-12] MEDS: Amlodipine 5 MG TAB PO SCH (08:48)
[2023-02-12] MEDS: Losartan/Hydrochlorothiazide 100 mg/25 mg Tablet PO SCH (08:48)
[2023-02-12] MEDS: Senokot S 8.6-50 MG TAB PO SCH (08:48)
[2023-02-12] MEDS: Multivitamin W/ Minerals 1 TAB PO SCH (08:49)
[2023-02-12] MEDS: Ferrous Gluconate 324 MG TAB PO SCH (08:49)
[2023-02-12 11:59] VITALS: BP 119/75; TEMP 98.4
== END 2023-02-12 13:45 | disposition home or self-care (01) ==
LOC: SDC 07:21 → SURG B 13:33
PROVIDERS: ADMIT Orthopaedic Surgery; ATTEND Orthopaedic Surgery
PROC: 0SRC0JZ Replacement of Right Knee Joint with Synthetic Substitute, Open Approach (ICD-10-PCS; principal; 2023-02-12)
DX: M17.0 Bilateral primary osteoarthritis of knee (principal); Z98.890 Other specified postprocedural states; Z79.899 Other long term (current) drug therapy
CPT/HCPCS: 36415; 85027; A4306; C1776; J0171; J1100; J1170; J1885; J2175; J2250; J2405; J2704; J2795; J3010; J3370; J3490; S0020

== ENCOUNTER 2023-02-19 10:53 | Inpatient (IN) | payer OTHER ==
[2023-02-19] MEDS ORDERED: diphenhydrAMINE 50 MG/ML VIAL ONE (11:49)
[2023-02-19 12:23] LABS: #Basophils 0.1 thou/uL (0.0-0.2); #Eosinphils 0.7 thou/uL (0.0-0.7); #Neutrophils 9.7 thou/uL (1.40-6.50); %Basophils 0.4 % (0.0-1.0); %Eosinophils 5.3 % (0.0-10.0); %Monocytes 7.6 % (0.0-10.0); %Neutrophils 71.7 % (42.0-75.0); Hematocrit 36.4 % (42.0-52.0); Hemoglobin 12.2 g/dL (14.0-18.0); Mean Corpuscular HGB CONC 33.5 g/dL (32.0-36.0); Mean Corpuscular Hemoglobin 29.7 pg (27.0-31.0); Mean Corpuscular Volume 88.6 fl (78.0-98.0); Mean Platelet Volume 8.9 fL (7.4-10.4); Platelet Count 405 10x3/uL (130-400); RBC Distribution Width 13.2 % (11.5-14.5); Red Blood Cell (RBC) Count 4.11 mill/uL (4.70-6.10); White Blood Cell (WBC) Count 13.5 10x3/uL (4.8-10.8)
[2023-02-19] MEDS ORDERED: Ipratropium/Albuterol 3 ML NEB ONE (12:36)
[2023-02-19 12:45] LABS: ALT (SGPT) 22 U/L (8-55); AST (SGOT) 21 U/L (5-34); Albumin 4.2 g/dL (3.4-4.8); Alkaline Phosphatase 65 U/L (40-110); Anion Gap 15 mmol/L (10-20); BUN (Urea Nitrogen) 21 mg/dL (8.4-25.7); Bilirubin, Total 1.9 mg/dL (0.2-1.2); Calc. Creatinine Clearance 0 mL/min (70-130); Calcium 9.6 mg/dL (7.8-10.44); Carbon Dioxide 27 mmol/L (23-31); Chloride 99 mmol/L (98-107); Estimated GFR 77; Glucose 99 mg/dL (80-115); Protein, Total 7.2 g/dL (5.8-8.1); Sodium 137 mmol/L (136-145)
[2023-02-19 12:47] LABS: SARS-CoV-2 NAA Rapid Test Not Detected (NotDetected)
[2023-02-19] MEDS ORDERED: HYDROcodone/Acetaminophen 10/325 mg Tablet PO PRN (13:11)
[2023-02-19] MEDS ORDERED: Ondansetron PF 4 MG/2 ML Vial IVP PRN (13:11)
[2023-02-19] MEDS ORDERED: Acetaminophen 325 MG TAB PO PRN (13:11)
[2023-02-19] MEDS ORDERED: Aspirin Chewable 81 MG TAB ONE (13:31)
[2023-02-19] MEDS ORDERED: ANTIBIOTICS IVPB PRN (15:06)
[2023-02-19] MEDS ORDERED: Lidocaine 1% (PF) 30 ML VIAL ONE (15:07)
[2023-02-19] MEDS ORDERED: TETANUS, DIPHTHERIA TOX,ADULT (TDVAX) 0.5 ML VIAL IM ONE (16:00)
[2023-02-19 16:18] LABS: Synovial Fluid, Protein 4.9 g/dL (Not Available); Synovial Fluid, Uric Acid 5.5 mg/dL (Not Available)
[2023-02-19] MEDS: HYDROcodone/Acetaminophen 10/325 mg Tablet PO PRN ×2 (16:23→21:55)
[2023-02-19 16:26] LABS: RBC Count-Automated (BF) 497457 /cu.mm; WBC/Nucleated-Auto (BF) 608 /cu.mm
[2023-02-19 16:27] LABS: BF Color Red; Body Fluid Source Synovial Fluid; Clarity Cloudy/Turbid (Clear); Tube # EDTA
[2023-02-19 16:32] LABS: BF Segmented Neutrophils 51 %; Cell Count Non Hematic 20 %; Eosinophils 3 %; Lymphocytes 26 %
[2023-02-19 16:47] VITALS: BMI 36.0
[2023-02-19] MEDS: CEFAZOLIN 2 GM in Sodium Chloride 0.9% 100 ML IVPB SCH (21:54)
[2023-02-19] MEDS: Aspirin 81 mg Enteric Coated Tablet PO SCH (21:56)
[2023-02-19] MEDS ORDERED: diphenhydrAMINE 25 MG CAP PO PRN (22:44)
[2023-02-20] MEDS ORDERED: diphenhydrAMINE 25 MG CAP PO PRN (02:42)
[2023-02-20] MEDS: CEFAZOLIN 2 GM in Sodium Chloride 0.9% 100 ML IVPB SCH ×2 (05:59→13:39)
[2023-02-20 07:32] LABS: #Basophils 0.1 thou/uL (0.0-0.2); #Eosinphils 0.8 thou/uL (0.0-0.7); #Monocytes 0.8 thou/uL (0.11-0.59); #Neutrophils 7.1 thou/uL (1.40-6.50); %Basophils 0.5 % (0.0-1.0); %Eosinophils 8.1 % (0.0-10.0); %Lymphocytes 13.8 % (21.0-51.0); %Monocytes 7.9 % (0.0-10.0); %Neutrophils 68.8 % (42.0-75.0); Hematocrit 33.4 % (42.0-52.0); Hemoglobin 11.1 g/dL (14.0-18.0); Mean Corpuscular HGB CONC 33.2 g/dL (32.0-36.0); Mean Corpuscular Hemoglobin 29.8 pg (27.0-31.0); Mean Corpuscular Volume 89.8 fl (78.0-98.0); Mean Platelet Volume 8.8 fL (7.4-10.4); Platelet Count 355 10x3/uL (130-400); RBC Distribution Width 13.2 % (11.5-14.5); Red Blood Cell (RBC) Count 3.72 mill/uL (4.70-6.10); White Blood Cell (WBC) Count 10.3 10x3/uL (4.8-10.8)
[2023-02-20 07:53] LABS: ALT (SGPT) 16 U/L (8-55); AST (SGOT) 16 U/L (5-34); Albumin 3.5 g/dL (3.4-4.8); Alkaline Phosphatase 54 U/L (40-110); Anion Gap 15 mmol/L (10-20); BUN (Urea Nitrogen) 19 mg/dL (8.4-25.7); Bilirubin, Total 1.2 mg/dL (0.2-1.2); Calc. Creatinine Clearance 145 mL/min (70-130); Calcium 8.8 mg/dL (7.8-10.44); Carbon Dioxide 25 mmol/L (23-31); Chloride 100 mmol/L (98-107); Estimated GFR 80; Globulin 2.8 g/dL (2.4-3.5); Glucose 112 mg/dL (80-115); Potassium 3.7 mmol/L (3.5-5.1); Protein, Total 6.3 g/dL (5.8-8.1); Sodium 136 mmol/L (136-145)
[2023-02-20] MEDS: Aspirin 81 mg Enteric Coated Tablet PO SCH (09:11)
[2023-02-20] MEDS ORDERED: Ipratropium/Albuterol 3 ML NEB NEB PRN (09:16)
[2023-02-20] MEDS: HYDROcodone/Acetaminophen 10/325 mg Tablet PO PRN ×2 (09:18→21:22)
[2023-02-20] MEDS ORDERED: Ipratropium/Albuterol 3 ML NEB NEB SCH (09:30)
[2023-02-20] MEDS: Albuterol 200 PUFF (6.7GM INHALER) INH SCH ×2 (14:34→18:39)
[2023-02-20 15:54] LABS: Legionella Urinary Ag Negative (Negative)
[2023-02-20] MEDS ORDERED: Albuterol 200 PUFF (6.7GM INHALER) INH SCH (17:00)
[2023-02-20] MEDS: Clindamycin 150 MG CAP PO SCH ×2 (17:33→21:23)
[2023-02-20 17:57] LABS: Strep pneumo Urine Ag NEGATIVE (NEGATIVE)
[2023-02-20] MEDS ORDERED: Apixaban 5 MG TAB PO SCH (21:00)
[2023-02-20] MEDS ORDERED: Enoxaparin 120 MG/0.8 ML SYRINGE SC SCH (21:00)
[2023-02-21] MEDS: Clindamycin 150 MG CAP PO SCH ×3 (05:54→22:44)
[2023-02-21 06:01] LABS: #Basophils 0.1 thou/uL (0.0-0.2); #Monocytes 0.9 thou/uL (0.11-0.59); #Neutrophils 6.7 thou/uL (1.40-6.50); %Basophils 0.6 % (0.0-1.0); %Eosinophils 8.8 % (0.0-10.0); %Lymphocytes 19.4 % (21.0-51.0); %Monocytes 8.6 % (0.0-10.0); %Neutrophils 61.5 % (42.0-75.0); Hematocrit 33.4 % (42.0-52.0); Hemoglobin 10.9 g/dL (14.0-18.0); Mean Corpuscular HGB CONC 32.6 g/dL (32.0-36.0); Mean Corpuscular Hemoglobin 29.6 pg (27.0-31.0); Mean Corpuscular Volume 90.8 fl (78.0-98.0); Mean Platelet Volume 8.7 fL (7.4-10.4); Platelet Count 358 10x3/uL (130-400); RBC Distribution Width 13.2 % (11.5-14.5); Red Blood Cell (RBC) Count 3.68 mill/uL (4.70-6.10); White Blood Cell (WBC) Count 10.8 10x3/uL (4.8-10.8)
[2023-02-21 06:24] LABS: ALT (SGPT) 16 U/L (8-55); AST (SGOT) 15 U/L (5-34); Albumin 3.6 g/dL (3.4-4.8); Alkaline Phosphatase 61 U/L (40-110); Anion Gap 10 mmol/L (10-20); BUN (Urea Nitrogen) 19 mg/dL (8.4-25.7); Bilirubin, Total 0.9 mg/dL (0.2-1.2); Calc. Creatinine Clearance 149 mL/min (70-130); Calcium 8.9 mg/dL (7.8-10.44); Carbon Dioxide 23 mmol/L (23-31); Chloride 107 mmol/L (98-107); Estimated GFR 83; Globulin 2.7 g/dL (2.4-3.5); Glucose 104 mg/dL (80-115); Magnesium 1.9 mg/dL (1.6-2.6); Potassium 3.8 mmol/L (3.5-5.1); Protein, Total 6.3 g/dL (5.8-8.1); Sodium 136 mmol/L (136-145)
[2023-02-21] MEDS: Albuterol 200 PUFF (6.7GM INHALER) INH SCH ×4 (06:45→18:50)
[2023-02-21] MEDS: Amlodipine 5 MG TAB PO SCH (09:10)
[2023-02-21] MEDS: Losartan/Hydrochlorothiazide 100 mg/25 mg Tablet PO SCH (09:10)
[2023-02-21] MEDS: Atorvastatin Calcium 40 MG TAB PO SCH (09:10)
[2023-02-21] MEDS: CEFAZOLIN 2 GM in Sodium Chloride 0.9% 100 ML IVPB SCH ×3 (10:15→22:45)
[2023-02-21] MEDS ORDERED: diphenhydrAMINE 50 MG CAP PO PRN (10:20)
[2023-02-21] MEDS ORDERED: Iopamidol-370 76% 500 ML MDV (1 ML CHARGE) ONE (11:15)
[2023-02-21] MEDS ORDERED: Heparin 25,000 units/D5W 500 ML IVPB SCH (22:00)
[2023-02-21] MEDS ORDERED: Heparin 10,000 UNITS/ 10 ML VIAL SLOW IVP SCH (22:00)
[2023-02-21 22:15] LABS: Hematocrit 32.1 % (42.0-52.0); Hemoglobin 10.7 g/dL (14.0-18.0); Platelet Count 338 10x3/uL (130-400)
[2023-02-21] MEDS: HYDROcodone/Acetaminophen 10/325 mg Tablet PO PRN (22:44)
[2023-02-22] MEDS: Clindamycin 150 MG CAP PO SCH (05:14)
[2023-02-22 06:09] LABS: #Basophils 0.1 thou/uL (0.0-0.2); #Eosinphils 0.7 thou/uL (0.0-0.7); #Monocytes 0.8 thou/uL (0.11-0.59); #Neutrophils 6.9 thou/uL (1.40-6.50); %Basophils 0.6 % (0.0-1.0); %Eosinophils 6.8 % (0.0-10.0); %Lymphocytes 20.5 % (21.0-51.0); %Monocytes 7.5 % (0.0-10.0); %Neutrophils 63.6 % (42.0-75.0); Hematocrit 35.1 % (42.0-52.0); Hemoglobin 11.4 g/dL (14.0-18.0); Mean Corpuscular HGB CONC 32.5 g/dL (32.0-36.0); Mean Corpuscular Hemoglobin 29.1 pg (27.0-31.0); Mean Corpuscular Volume 89.5 fl (78.0-98.0); Mean Platelet Volume 8.6 fL (7.4-10.4); Platelet Count 384 10x3/uL (130-400); RBC Distribution Width 13.3 % (11.5-14.5); Red Blood Cell (RBC) Count 3.92 mill/uL (4.70-6.10); White Blood Cell (WBC) Count 10.8 10x3/uL (4.8-10.8)
[2023-02-22 06:33] LABS: ALT (SGPT) 14 U/L (8-55); AST (SGOT) 17 U/L (5-34); Albumin 3.7 g/dL (3.4-4.8); Alkaline Phosphatase 66 U/L (40-110); Anion Gap 6 mmol/L (10-20); BUN (Urea Nitrogen) 16 mg/dL (8.4-25.7); Bilirubin, Total 1.1 mg/dL (0.2-1.2); Calc. Creatinine Clearance 137 mL/min (70-130); Calcium 8.9 mg/dL (7.8-10.44); Carbon Dioxide 21 mmol/L (23-31); Chloride 109 mmol/L (98-107); Estimated GFR 75; Glucose 121 mg/dL (80-115); Magnesium 1.9 mg/dL (1.6-2.6); Potassium 3.6 mmol/L (3.5-5.1); Protein, Total 6.7 g/dL (5.8-8.1); Sodium 132 mmol/L (136-145)
[2023-02-22] MEDS: Albuterol 200 PUFF (6.7GM INHALER) INH SCH ×4 (07:11→18:30)
[2023-02-22] MEDS: Amlodipine 5 MG TAB PO SCH (07:47)
[2023-02-22] MEDS ORDERED: Sodium Chloride 0.9% 100 ML ONE (08:55)
[2023-02-22] MEDS ORDERED: CEFAZOLIN 2 GM VIAL ONE (08:55)
[2023-02-22] MEDS ORDERED: Lidocaine 1% (PF) 30 ML VIAL ONE (09:09)
[2023-02-22] MEDS ORDERED: Bupivacaine PF 0.5% 30 ML VIAL ONE ×2 (09:09→09:10)
[2023-02-22] MEDS ORDERED: Midazolam HCl 2 mg/2 ml Vial ONE (09:09)
[2023-02-22] MEDS ORDERED: fentaNYL PF 100 MCG/2 ML SYRINGE ONE (09:09)
[2023-02-22] MEDS ORDERED: fentaNYL 50 mcg/mL 1 mL Vial ONE ×6 (09:09→12:01)
[2023-02-22] MEDS ORDERED: Lidocaine 1% PF 5 ML VIAL ONE (09:27)
[2023-02-22] MEDS ORDERED: Metoclopramide HCl 10 MG/2 ML VIAL ONE (09:27)
[2023-02-22] MEDS ORDERED: PROPOFOL 200 MG/20 ML VIAL ONE (09:27)
[2023-02-22] MEDS ORDERED: Bupivacaine HCl 0.5%/Epinephrine 1:200,000/PF 30 ml Vial ONE (09:27)
[2023-02-22] MEDS ORDERED: Ondansetron PF 4 MG/2 ML Vial ONE ×2 (09:27→10:15)
[2023-02-22] MEDS ORDERED: Iopamidol 300 61% 30 ML VIAL ONE (09:41)
[2023-02-22] MEDS ORDERED: Vancomycin 1 GM VIAL ONE (09:49)
[2023-02-22] MEDS: HYDROcodone/Acetaminophen 10/325 mg Tablet PO PRN ×3 (12:47→22:21)
[2023-02-22] MEDS ORDERED: Rifampin 300 MG CAP PO SCH (13:00)
[2023-02-22] MEDS: CEFAZOLIN 2 GM in Sodium Chloride 0.9% 100 ML IVPB SCH ×3 (13:24→22:22)
[2023-02-22] MEDS: Atorvastatin Calcium 40 MG TAB PO SCH (13:24)
[2023-02-22] MEDS: Losartan/Hydrochlorothiazide 100 mg/25 mg Tablet PO SCH (13:24)
[2023-02-22] MEDS: traMADol HCl 50 MG TAB PO PRN ×2 (15:51→23:52)
[2023-02-22] MEDS ORDERED: VANCOMYCIN 2 GRAM/500 ML BAG 2 GM in Premix Bag 1 BAG IVPB SCH (21:00)
[2023-02-22] MEDS: Rifampin 300 MG CAP PO SCH (22:22)
[2023-02-23] MEDS: HYDROcodone/Acetaminophen 10/325 mg Tablet PO PRN ×4 (05:25→20:27)
[2023-02-23] MEDS: Albuterol 200 PUFF (6.7GM INHALER) INH SCH ×4 (06:46→18:34)
[2023-02-23 07:04] LABS: #Basophils 0.1 thou/uL (0.0-0.2); #Eosinphils 0.7 thou/uL (0.0-0.7); #Monocytes 1.3 thou/uL (0.11-0.59); #Neutrophils 10.4 thou/uL (1.40-6.50); %Basophils 0.4 % (0.0-1.0); %Lymphocytes 10.6 % (21.0-51.0); %Monocytes 9.2 % (0.0-10.0); %Neutrophils 74.1 % (42.0-75.0); Hemoglobin 9.9 g/dL (14.0-18.0); Mean Corpuscular Hemoglobin 29.9 pg (27.0-31.0); Mean Corpuscular Volume 90.6 fl (78.0-98.0); Platelet Count 356 10x3/uL (130-400); RBC Distribution Width 13.5 % (11.5-14.5); Red Blood Cell (RBC) Count 3.31 mill/uL (4.70-6.10); White Blood Cell (WBC) Count 14.1 10x3/uL (4.8-10.8)
[2023-02-23 07:32] LABS: Anion Gap 12 mmol/L (10-20); BUN (Urea Nitrogen) 14 mg/dL (8.4-25.7); Calc. Creatinine Clearance 159 mL/min (70-130); Calcium 8.3 mg/dL (7.8-10.44); Carbon Dioxide 24 mmol/L (23-31); Chloride 104 mmol/L (98-107); Estimated GFR 89; Glucose 119 mg/dL (80-115); Magnesium 1.9 mg/dL (1.6-2.6); Sodium 136 mmol/L (136-145)
[2023-02-23] MEDS: Amlodipine 5 MG TAB PO SCH (09:17)
[2023-02-23] MEDS: Atorvastatin Calcium 40 MG TAB PO SCH (09:18)
[2023-02-23] MEDS: Losartan/Hydrochlorothiazide 100 mg/25 mg Tablet PO SCH (09:18)
[2023-02-23] MEDS: Rifampin 300 MG CAP PO SCH ×2 (09:18→21:00)
[2023-02-23] MEDS: CEFAZOLIN 2 GM in Sodium Chloride 0.9% 100 ML IVPB SCH ×3 (09:19→23:23)
[2023-02-23] MEDS: Senokot S 8.6-50 MG TAB PO SCH (20:26)
[2023-02-23] MEDS: Apixaban 2.5 MG TAB PO SCH (20:26)
[2023-02-24] MEDS: HYDROcodone/Acetaminophen 10/325 mg Tablet PO PRN ×2 (05:22→15:53)
[2023-02-24 06:06] LABS: Magnesium 1.9 mg/dL (1.6-2.6)
[2023-02-24] MEDS: Albuterol 200 PUFF (6.7GM INHALER) INH SCH ×3 (06:41→14:02)
[2023-02-24] MEDS: CEFAZOLIN 2 GM in Sodium Chloride 0.9% 100 ML IVPB SCH (11:15)
[2023-02-24] MEDS: Losartan/Hydrochlorothiazide 100 mg/25 mg Tablet PO SCH (11:17)
[2023-02-24] MEDS: Amlodipine 5 MG TAB PO SCH (11:17)
[2023-02-24] MEDS: Apixaban 2.5 MG TAB PO SCH (11:17)
[2023-02-24] MEDS: Rifampin 300 MG CAP PO SCH (11:17)
[2023-02-24] MEDS: Senokot S 8.6-50 MG TAB PO SCH (11:17)
[2023-02-24] MEDS: Atorvastatin Calcium 40 MG TAB PO SCH (11:18)
[2023-02-24 14:19] VITALS: BP 149/78; TEMP 98.8
== END 2023-02-24 16:24 | disposition home health service (06) | DRG 486 ==
LOC: ERS 10:53 → SJJU 13:11 → OBSVTOIN 02-21 12:54
PROVIDERS: ADMIT Orthopaedic Surgery; ATTEND Orthopaedic Surgery
PROC: 0S9C3ZZ Drainage of Right Knee Joint, Percutaneous Approach (ICD-10-PCS; 2023-02-19)
PROC: 0SBC0ZZ Excision of Right Knee Joint, Open Approach (ICD-10-PCS; principal; 2023-02-22)
PROC: 02HV33Z Insertion of Infusion Device into Superior Vena Cava, Percutaneous Approach (ICD-10-PCS; 2023-02-22)
PROC: B5181ZA Fluoroscopy of Superior Vena Cava using Low Osmolar Contrast, Guidance (ICD-10-PCS; 2023-02-22)
PROC: B548ZZA Ultrasonography of Superior Vena Cava, Guidance (ICD-10-PCS; 2023-02-22)
PROC: 0SWC09Z Revision of Liner in Right Knee Joint, Open Approach (ICD-10-PCS; 2023-02-22)
DX: T84.53XA Infection and inflammatory reaction due to internal right knee prosthesis, initial encounter (principal); I82.431 Acute embolism and thrombosis of right popliteal vein; M00.061 Staphylococcal arthritis, right knee; I10 Essential (primary) hypertension; J30.2 Other seasonal allergic rhinitis; R05.9 Cough, unspecified; E78.00 Pure hypercholesterolemia, unspecified; Z96.652 Presence of left artificial knee joint; B95.7 Other staphylococcus as the cause of diseases classified elsewhere; Z98.890 Other specified postprocedural states; Z87.891 Personal history of nicotine dependence; Z20.822 Contact with and (suspected) exposure to COVID-19; R06.2 Wheezing; Y83.8 Other surgical procedures as the cause of abnormal reaction of the patient, or of later complication, without mention of misadventure at the time of the procedure; L30.9 Dermatitis, unspecified
CPT/HCPCS: 36415; 36416; 36569; 71045; 71275; 80048; 80053; 82945; 83735; 83880; 84157; 84560; 85025; 85060; 85652; 85730; 86140; 86850; 86900; 86901; 87040; 87070; 87077; 87081; 87186; 87205; 87449; 87899; 89051; 89060; 93005; 93010; 93970; 94640; 96374; C1751; J1200; J1644; J1650; J2001; J2250; J2405; J2704; J2765; J3010; J3370; J3490; J7620; Q9967; S0020

== ENCOUNTER 2023-08-24 08:30 | Outpatient (CLI) | payer OTHER | END 2023-08-24 08:31 | disposition home or self-care (01) | LOC: BICMRI 08:30 | PROVIDERS: ATTEND Orthopaedic Surgery | DX: Z47.1 Aftercare following joint replacement surgery (principal); S76.111A Strain of right quadriceps muscle, fascia and tendon, initial encounter; Z96.651 Presence of right artificial knee joint ==